=== PATIENT | female | born 1965 | race Caucasian/White ===

== ENCOUNTER → 2016-11-22 | Outpatient (REF) | payer OTHER ==
[~2016-11-22] MED LIST: GABA-279 PO; GABA-283 PO; LISI10TA4 PO; METF500T13 PO; OMEP20CA3 PO; PENT10CA PO; VITA-182 PO
[2016-11-22 19:31] LABS: BACTERIA, URINE NONE SEEN; HYALINE CAST, URINE NONE SEEN /lpf (0-1); MICROSCOPIC EXAM PERFORMED; SQUAMOUS EPITHELIAL CELL URINE SMALL AMOUNT /hpf (SMALL AMT); WBC, URINE 0-1 /hpf (0-3)
== END ==
LOC: M SMT 16:58
PROVIDERS: ATTEND Specialist
DX: R31.0 Gross hematuria (principal)

== ENCOUNTER → 2016-12-02 | Outpatient (CLI) | payer OTHER ==
[2016-12-02 16:59] LABS: ANION GAP 10 MEQ/L (8-16); BLOOD UREA NITROGEN 11 MG/DL (7-18); CALCIUM LEVEL 8.5 MG/DL (8.5-10.1); CARBON DIOXIDE LEVEL 26 MEQ/L (21-32); CHLORIDE LEVEL 104 MEQ/L (98-107); CREATININE FOR GFR 0.54 MG/DL (0.55-1.02); GLOMERULAR FILTRATION RATE > 60.0 (>51); GLUCOSE, FASTING 97 MG/DL (70-105); SODIUM LEVEL 140 MEQ/L (136-145)
== END ==
LOC: M LAB 16:02
PROVIDERS: ATTEND Specialist
DX: R31.0 Gross hematuria (principal)

== ENCOUNTER → 2016-12-03 | Outpatient (CLI) | payer OTHER ==
[~2016-12-03] MED LIST changes: +ISOVUE-370 76% 100ML VIAL (Q9967) As Ordered ONE
--- NOTE | 2016-12-03 11:56 | REP ---
CT of the abdomen pelvis multiphase imaging without and with IV contrast. After IV contrast imaging is performed during the portal venous phase of enhancement and again after a delayed equilibrium phase of enhancement. This is similar to the prior study. There are no renal, ureteral or bladder calculi. This is unchanged. There is no hydronephrosis. This is unchanged. There is no perinephric stranding. There are no renal masses or cysts. This is unchanged. No bladder masses are identified. This is unchanged. The visualized lung finnegan are unremarkable. The hepatic parenchyma, gallbladder, pancreas and spleen are normal size and unchanged. The adrenals, kidneys, abdominal aorta, bowel and mesentery are unchanged. Pelvis: The appendix has a normal appearance. There is a hysterectomy. The vaginal cuff and adnexa are unremarkable. The bladder is unremarkable. There is no ascites. The pelvic bowel loops are unremarkable. Impression: The kidneys, ureters and urinary bladder are unremarkable. There are no calculi, masses, cysts or hydronephrosis . No change from the prior study. Hysterectomy. Otherwise, essentially negative CT of the abdomen and pelvis. Signed by Jeremy Davis MD 12/03/2016 11:47 A
== END ==
LOC: M RAD 11:04
PROVIDERS: ATTEND Specialist
DX: R31.0 Gross hematuria (principal); Z90.710 Acquired absence of both cervix and uterus
CPT/HCPCS: 74178; Q9967

== ENCOUNTER 2017-03-07 06:12 | Day surgery (SDC) | payer OTHER ==
[~2017-03-07] VITALS: Ht 154.9 cm; Wt 98.0 kg
[~2017-03-07 06:12] MED LIST changes: -ISOVUE-370 76% 100ML VIAL (Q9967) As Ordered ONE
[2017-03-07] MEDS ORDERED: LR 1,000 ML IV SCH ×2 (06:30→09:45)
[2017-03-07] MEDS ORDERED: LIDOCAINE 2% INJ 100 MG/5 ML SDV (FOR ANES.) As Ordered ONE (07:55)
[2017-03-07] MEDS ORDERED: PROPOFOL 200 MG/20 ML VIAL As Ordered ONE (07:55)
[2017-03-07] MEDS ORDERED: fentaNYL 100 MCG/2 ML INJECTION (J3010) As Ordered ONE (07:55)
[2017-03-07] MEDS ORDERED: MIDAZOLAM INJ 2 MG/2 ML VIAL (J2250) As Ordered ONE (07:55)
[2017-03-07] MEDS ORDERED: LIDOCAINE 2% 5ML JELLY UROJET As Ordered ONE (08:12)
[2017-03-07] MEDS ORDERED: LIDOCAINE 2% MDV 20 ML VIAL As Ordered ONE (08:14)
[2017-03-07] MEDS ORDERED: PHENYLephrine HCL 500 MCG/5 ML (100MCG/ML) SYRINGE (J2370) As Ordered ONE (08:48)
[2017-03-07] MEDS ORDERED: ONDANSETRON 4MG/2ML VIAL (J2405) As Ordered ONE (08:54)
[2017-03-07] MEDS ORDERED: PERCOCET 5MG/325MG TAB PO PRN (09:45)
[2017-03-07] MEDS ORDERED: fentaNYL 100 MCG/2 ML INJECTION (J3010) IV PRN (09:45)
[2017-03-07] MEDS ORDERED: MEPERIDINE INJ 25 MG/ML VIAL (J2175) IV PRN (09:45)
[2017-03-07] MEDS ORDERED: ONDANSETRON 4MG/2ML VIAL (J2405) IV PRN (09:45)
[2017-03-07] MEDS ORDERED: METOCLOPRAMIDE INJ 10MG/2ML VIAL (J2765) IV PRN (09:45)
[2017-03-07 10:10] VITALS: BP 133/64
--- NOTE | 2017-03-08 11:30 | RO ---
DATE OF PROCEDURE: 03/07/2017 PREOPERATIVE DIAGNOSIS: Severe cystitis. POSTOPERATIVE DIAGNOSIS: Severe cystitis. PROCEDURE: Cystoscopy, random bladder biopsies and extensive fulguration. SURGEON: Nicol Gil MD BUFF WHEEL FABRICATOR: ANESTHESIA: General with laryngeal mask airway (LMA). MEDICATIONS: Ancef 2 grams preoperatively. SPECIMENS: Random bladder biopsies. INDICATIONS FOR PROCEDURE: The patient is a 51-year-old female with a history of gross hematuria and a longstanding history of urinary urgency, urge incontinence, frequency, nocturia, suprapubic pain and pressure and dysuria despite oxybutynin ER daily. Urodynamic studies done 12/12 did show an obstructive voiding pattern with high peak detrusor pressures during voiding. 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 She also had a history of recurrent urinary tract infections versus irritative voiding symptoms. After discussing all different options, alternatives, risks, and benefits it was decided to bring her to the operating room for cystoscopy, bladder biopsies and fulguration. We also started her on Elmiron. Informed consent was obtained in both verbal and written form. A urine culture came back the day of the surgical procedure with Klebsiella in her urine and she was given Ancef 2 grams prior to the procedure, and will be sent home on Bactrim DS daily for 10 days and then started on methenamine to help prevent recurrent infections. PROCEDURE: The patient was brought into the operating room. Sequential compression devices were in place and anesthesia was induced. She was then placed in the lithotomy position and careful attention was paid that her pressure points were well padded and protected. She was prepped and draped in the usual fashion. Next, a #21-Lithuanian cystoscope was inserted. The urethra was noted to be open without any evidence of lesions or strictures. Upon entering the bladder, both ureteral orifices were seen. There was multiple other areas of what appeared to be cystitis follicularis throughout the bladder and there must have been more than 100 lesions. A few bladder biopsies were taken randomly and then using a Bugbee, as many of these that could be fulgurated were. There was some mild areas of glomerulations and hyperemia and these were also fulgurated. At the end of the procedure the patient's bladder was emptied and a red rubber catheter was placed with 10 mL of 2% lidocaine mixed with lidocaine jelly for postoperative pain control. The patient tolerated the procedure well and was returned to the recovery room in stable condition. Again, she will be sent home with Bactrim DS and then started on methenamine. She is to continue her Elmiron at home.
== END 2017-03-07 10:39 | disposition home or self-care (01) ==
LOC: M SDC 06:12
PROVIDERS: ATTEND Specialist
DX: N30.01 Acute cystitis with hematuria (principal); I10 Essential (primary) hypertension; E78.5 Hyperlipidemia, unspecified; E66.9 Obesity, unspecified; E11.9 Type 2 diabetes mellitus without complications; Z79.899 Other long term (current) drug therapy
CPT/HCPCS: 52224; 88305; J0690; J2250; J2370; J2405; J3010

== ENCOUNTER → 2017-03-21 | Outpatient (REF) | payer OTHER | LOC: M SMT 16:55 | PROVIDERS: ATTEND Nurse Practitioner Family | DX: R30.0 Dysuria (principal) ==

== ENCOUNTER → 2017-04-04 | Outpatient (REF) | payer OTHER | LOC: M SMT 13:05 | PROVIDERS: ATTEND Specialist | DX: R30.0 Dysuria (principal) ==

== ENCOUNTER → 2017-04-08 | Outpatient (REF) | payer OTHER ==
[2017-04-08 13:16] LABS: BACTERIA, URINE NONE SEEN; HYALINE CAST, URINE NONE SEEN /lpf (0-1); MICROSCOPIC EXAM PERFORMED; RBC, URINE NONE SEEN /hpf (0-3); SQUAMOUS EPITHELIAL CELL URINE SMALL AMOUNT /hpf (SMALL AMT); WBC, URINE 0-1 /hpf (0-3)
== END ==
LOC: M SMT 12:46
PROVIDERS: ATTEND Specialist
DX: N39.0 Urinary tract infection, site not specified (principal)

== ENCOUNTER → 2017-05-30 | Outpatient (REF) | payer OTHER ==
[2017-05-30 21:21] LABS: WBC, URINE TNTC /hpf (0-3)
[2017-05-30 21:22] LABS: BACTERIA, URINE MOD AMOUNT; MUCUS, URINE SMALL AMOUNT (NEGATIVE)
[2017-05-30 21:23] LABS: SQUAMOUS EPITHELIAL CELL URINE NONE SEEN /hpf (SMALL AMT); TRANSITIONAL EPI CELLS, URINE SMALL AMOUNT /hpf
[2017-05-30 21:26] LABS: HYALINE CAST, URINE NONE SEEN /lpf (0-1); MICROSCOPIC EXAM PERFORMED
== END ==
LOC: M SMT 17:03
DX: R31.0 Gross hematuria (principal)
CPT/HCPCS: 81015

== ENCOUNTER → 2018-01-21 | Outpatient (REF) | payer OTHER | LOC: M LAB REF 17:19 | DX: G60.9 Hereditary and idiopathic neuropathy, unspecified (principal) ==

== ENCOUNTER → 2018-02-26 | Outpatient (REF) | payer OTHER ==
[2018-02-26 19:09] LABS: AMORPHOUS SEDIMENT MODERATE (NEGATIVE); BACTERIA, URINE AUTO 2+ (NEGATIVE); RBC, URINE AUTO 0 /HPF (0-3); SQUAMOUS EPITHELIAL CELL UR AU 0 /HPF (0-6); WBC, URINE AUTO 12 /HPF (0-3)
== END ==
LOC: M SMT 17:04
DX: N39.0 Urinary tract infection, site not specified (principal)

== ENCOUNTER → 2018-06-11 | Outpatient (REF) | payer OTHER ==
[~2018-06-11] MED LIST changes: +GABA-1171 PO; -GABA-279 PO; -GABA-283 PO; +GABA-845 PO
[2018-06-11 13:52] LABS: BACTERIA, URINE AUTO 1+ (NEGATIVE); MUCUS, URINE SMALL (NEGATIVE); RBC, URINE AUTO 1 /HPF (0-3); SQUAMOUS EPITHELIAL CELL UR AU 0 /HPF (0-6); WBC, URINE AUTO 5 /HPF (0-3)
== END ==
LOC: M SMT 13:27
PROVIDERS: ATTEND Specialist
DX: N39.3 Stress incontinence (female) (male) (principal)

== ENCOUNTER → 2018-12-11 | Outpatient (CLI) | payer OTHER ==
[~2018-12-11] MED LIST changes: -OMEP20CA3 PO; +OMEP20CA4 PO
--- NOTE | 2018-12-11 20:09 | REP ---
RIGHT SHOULDER, COMPLETE: 12/11/2018. Comparison MRI shoulder 06/26/2006. Clinical History: Shoulder pain. Findings: Three views are provided. There is some soft tissue calcification just above the superior margin of the glenoid and humeral head and over the greater tuberosity humeral head. This is consistent with calcific tendonitis. The AC joint is not widened. There is no elevation of the clavicle. There may have been some distal clavicular excision since the previous study, but I do not have history. It does have a different configuration than the previous MRI 12 years ago. The glenohumeral joint shows minimal degenerative change inferiorly, scapula, humerus and ribs without fracture. Impression: 1. Calcific tendinopathy over the greater tuberosity humeral head likely in the supraspinatus. 2. Minor degenerative changes glenohumeral joint. Possible distal clavicular excision or resorption of the distal clavicle since the previous study. No acute clavicular finding. Electronically Signed by Jagdish Figueredo MD 12/11/2018 08:28 P
== END ==
LOC: M RAD 17:33
PROVIDERS: ATTEND Internal Medicine
DX: M19.011 Primary osteoarthritis, right shoulder (principal); M25.511 Pain in right shoulder

== ENCOUNTER → 2019-02-24 | Outpatient (CLI) | payer OTHER ==
[~2019-02-24] MED LIST changes: +D 101000 PO; +METH-855 PO; +OXYB15TA PO
[2019-02-24 14:39] LABS: BACTERIA, URINE AUTO NEGATIVE (NEGATIVE); MUCUS, URINE SMALL (NEGATIVE); RBC, URINE AUTO 1 /HPF (0-3); SQUAMOUS EPITHELIAL CELL UR AU 5 /HPF (0-6); WBC, URINE AUTO 17 /HPF (0-3)
--- NOTE | 2019-02-24 22:36 | ECGEPIP ---
[facility] Test Date: 2019-02-24 Pat Name: DANIEL SCHNEIDER Department: Room: - Gender: Female Hvac Service Manager: RED : 1965 Requested By: BRIJESH Campuzano Order Number: [id number] Reading MD: Jose Martin Ferguson Measurements Intervals Mission Rate: 47 P: 39 TN: 194 QRS: 6 QRSD: 84 T: 38 QT: 453 QTc: 404 Interpretive Statements SINUS BRADYCARDIA LOW QRS VOLTAGE IN PRECORDIAL LEADS No prior ECG available for comparison at the time of interpretation. Electronically Signed on 02-24-2019 22:36:13 EDT by Jose Martin Ferguson
== END ==
LOC: M LAB 10:40
PROVIDERS: ATTEND Specialist
DX: R35.1 Nocturia (principal); R94.31 Abnormal electrocardiogram [ECG] [EKG]

== ENCOUNTER → 2019-02-24 | Outpatient (CLI) | payer OTHER ==
[2019-02-24 14:24] LABS: HEMATOCRIT 37.9 % (36.0-47.0); HEMOGLOBIN 11.9 g/dl (12.0-15.5); MEAN CORPUSCULAR HEMOGLOBIN 27.9 pg (27.0-33.0); MEAN CORPUSCULAR HGB CONC 31.4 g/dl (32.0-36.5); PLATELET COUNT, AUTOMATED 243 10^3/uL (150-450); RED BLOOD COUNT 4.26 10^6/uL (4.00-5.40); WHITE BLOOD COUNT 6.5 10^3/uL (4.0-10.0)
[2019-02-24 14:30] LABS: BLOOD UREA NITROGEN 13 MG/DL (7-18); CALCIUM LEVEL 9.3 MG/DL (8.5-10.1); CARBON DIOXIDE LEVEL 29 MEQ/L (21-32); CHLORIDE LEVEL 107 MEQ/L (98-107); CREATININE FOR GFR 0.69 MG/DL (0.55-1.30); GLOMERULAR FILTRATION RATE > 60.0 (>51); GLUCOSE, FASTING 95 MG/DL (70-100); POTASSIUM SERUM 4.3 MEQ/L (3.5-5.1); SODIUM LEVEL 139 MEQ/L (136-145)
== END ==
LOC: M SMT 10:13
PROVIDERS: ATTEND Specialist
DX: R35.1 Nocturia (principal)

== ENCOUNTER 2019-02-26 10:41 | Day surgery (SDC) | payer OTHER ==
[~2019-02-26] VITALS: Ht 157.5 cm; Wt 98.9 kg
[~2019-02-26 10:41] MED LIST changes: +ACETAMINOPHEN 1000MG 100ML IV BTL (OFIRMEV) (J0131 PER 10MG) As Ordered ONE; +LIDOCAINE 2% INJ 100 MG/5 ML SDV (FOR ANES.) As Ordered ONE; +LR 1,000 ML IV ONE; +MIDAZOLAM INJ 2 MG/2 ML VIAL (J2250) As Ordered ONE; +ONDANSETRON 4MG/2ML VIAL (J2405) As Ordered ONE; +PROPOFOL 200 MG/20 ML VIAL As Ordered ONE; +ceFAZolin SOD 2 GM in IV 1 EA IV ONE; +fentaNYL 100 MCG/2 ML INJECTION (J3010) As Ordered ONE
[2019-02-26] MEDS ORDERED: LIDOCAINE 2% 5ML JELLY UROJET As Ordered ONE (10:58)
[2019-02-26] MEDS ORDERED: LIDOCAINE 1% MDV INJ 50 ML VIAL As Ordered ONE (10:58)
[2019-02-26] MEDS ORDERED: dexameTHASONE 4 MG/ML 1ML VIAL (J1100) As Ordered ONE (12:02)
[2019-02-26] MEDS ORDERED: ACETAMINOPHEN 1000MG 100ML IV BTL (OFIRMEV) (J0131 PER 10MG) As Ordered ONE (12:02)
[2019-02-26] MEDS ORDERED: KETOROLAC 60 MG/2 ML VIAL (J1885) As Ordered ONE (12:10)
[2019-02-26] MEDS ORDERED: PROPOFOL 200 MG/20 ML VIAL As Ordered ONE (12:23)
[2019-02-26] MEDS ORDERED: fentaNYL 100 MCG/2 ML INJECTION (J3010) IV PRN (12:45)
[2019-02-26] MEDS ORDERED: METOCLOPRAMIDE INJ 10MG/2ML VIAL (J2765) IV PRN (12:45)
[2019-02-26] MEDS ORDERED: oxyCODONE 5MG TAB PO PRN (12:45)
[2019-02-26] MEDS ORDERED: LR 1,000 ML IV SCH (12:45)
[2019-02-26] MEDS ORDERED: ONDANSETRON 4MG/2ML VIAL (J2405) IV PRN (12:45)
[2019-02-26 14:00] VITALS: BP 110/57
--- NOTE | 2019-02-26 21:24 | RO ---
DATE OF PROCEDURE: 02/26/2019 PREOPERATIVE DIAGNOSIS: Severe cystitis, folliculitis. POSTOPERATIVE DIAGNOSIS: Severe cystitis, folliculitis. PROCEDURE: Cystoscopy, hydrodistention, bladder biopsies, and extensive fulguration. SURGEON: Dr. Nicol Gil GOSPEL SINGER: ANESTHESIA: Monitored anesthesia care (MAC). MEDICATIONS: Ancef preoperatively. SPECIMENS: Bladder biopsies. 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 Since then she has been managed by Elmiron and methenamine, and also oxybutynin ER. Recently, though, she has been quite bothered by urinary urgency and urge incontinence again and bladder pain and pressure with burning. It was decided to bring her back to the operating room for another procedure. Informed consent was obtained in both verbal and written form. DESCRIPTION OF PROCEDURE: The patient was brought into the operating room and sequential compression devices and thromboembolism deterrent (LIDA) stockings were in place. IV sedation was given and she was placed in the lithotomy position. Careful attention was paid that her pressure points were well padded and protected. She was prepped and draped in the usual fashion. Next, a 21-Slovak cystoscope was inserted and upon entering the bladder, both ureteral orifices were seen. Again, there were severe changes of follicular cystitis throughout the entire bladder lining, except for the areas that were fulgurated in the past, some of these were spared. At this point, the patient's bladder was distended using normal saline for a total of 10 minutes, and her total bladder capacity under anesthesia was approximately 600 mL. Afterwards some bladder biopsies were done and then extensive fulguration was done on the lesions throughout the bladder. A slurry of lidocaine jelly and 1% lidocaine was then placed in the bladder for postprocedure pain control. The patient tolerated the procedure well and was returned to the recovery room in stable condition. TEX
== END 2019-02-26 14:15 | disposition home or self-care (01) ==
LOC: M SDC 10:41
PROVIDERS: ATTEND Specialist
DX: N30.30 Trigonitis without hematuria (principal); R35.1 Nocturia; R10.2 Pelvic and perineal pain; R39.15 Urgency of urination; R32 Unspecified urinary incontinence; I10 Essential (primary) hypertension; E11.9 Type 2 diabetes mellitus without complications; K21.9 Gastro-esophageal reflux disease without esophagitis; F41.9 Anxiety disorder, unspecified; Z79.899 Other long term (current) drug therapy
CPT/HCPCS: 52234; 52260; 88305; J0131; J0690; J1100; J1885; J2250; J2405; J3010

== ENCOUNTER → 2019-05-18 | Outpatient (REF) | payer OTHER ==
[~2019-05-18] MED LIST changes: -ACETAMINOPHEN 1000MG 100ML IV BTL (OFIRMEV) (J0131 PER 10MG) As Ordered ONE; -LIDOCAINE 2% INJ 100 MG/5 ML SDV (FOR ANES.) As Ordered ONE; -LR 1,000 ML IV ONE; -MIDAZOLAM INJ 2 MG/2 ML VIAL (J2250) As Ordered ONE; +OMEP1CAP73 PO; -OMEP20CA4 PO; -ONDANSETRON 4MG/2ML VIAL (J2405) As Ordered ONE; -OXYB15TA PO; +OXYB15TA14 PO; -PROPOFOL 200 MG/20 ML VIAL As Ordered ONE; -ceFAZolin SOD 2 GM in IV 1 EA IV ONE; -fentaNYL 100 MCG/2 ML INJECTION (J3010) As Ordered ONE
[2019-05-18 18:41] LABS: BACTERIA, URINE AUTO NEGATIVE (NEGATIVE); RBC, URINE AUTO 3 /HPF (0-3); SQUAMOUS EPITHELIAL CELL UR AU 1 /HPF (0-6); WBC, URINE AUTO 76 /HPF (0-3)
== END ==
LOC: M SMT 17:14
PROVIDERS: ATTEND Specialist
DX: N30.90 Cystitis, unspecified without hematuria (principal); R32 Unspecified urinary incontinence

== ENCOUNTER 2019-07-10 16:17 | Emergency (ER) | payer OTHER ==
[~2019-07-10] VITALS: Ht 157.5 cm; Wt 101.3 kg
[2019-07-10] MEDS ORDERED: RALT40TA PO ×2 (17:10→17:51)
[2019-07-10] MEDS ORDERED: LEXA5TAB13 PO (17:10)
[2019-07-10] MEDS ORDERED: MYRB50TA PO (17:10)
[2019-07-10] MEDS ORDERED: TRUVTAB PO ×2 (17:10→17:51)
[2019-07-10 17:36] LABS: BASO % 0.7 % (0.0-1.0); EOS # 0.1 10^3/uL (0.0-0.5); EOS % 1.8 % (0.0-3.0); HEMATOCRIT 37.9 % (36.0-47.0); HEMOGLOBIN 11.9 g/dl (12.0-15.5); LYMPH # 2.3 10^3/uL (1.5-5.0); LYMPH % 38.2 % (24.0-44.0); MEAN CORPUSCULAR HEMOGLOBIN 27.3 pg (27.0-33.0); MEAN CORPUSCULAR HGB CONC 31.4 g/dl (32.0-36.5); MEAN CORPUSCULAR VOLUME 86.9 fl (80.0-96.0); MONO # 0.4 10^3/uL (0.0-0.8); MONO % 6.4 % (0.0-5.0); NEUTROPHILS # 3.2 10^3/uL (1.5-8.5); NEUTROPHILS % 52.7 % (36.0-66.0); PLATELET COUNT, AUTOMATED 240 10^3/uL (150-450); RED BLOOD COUNT 4.36 10^6/uL (4.00-5.40); WHITE BLOOD COUNT 6.1 10^3/uL (4.0-10.0)
[2019-07-10] MEDS ORDERED: HEPATITIS B IMMUNE GLOBULIN 5ML INJ (J1571) IM ONE (17:45)
[2019-07-10] MEDS ORDERED: EXPOSURE KIT-ADULT 7 DAY SUPPLY PO ONE (17:45)
[2019-07-10] MEDS ORDERED: ADACEL/BOOSTRIX VACCINE (DIPHTH/PERTUSS/ACELL/TETANUS)0.5ML SYR (90715) IM ONE (17:45)
[2019-07-10] MEDS ORDERED: [UNRECOGNIZED DRUG - OTHER] IM ONE (17:45)
[2019-07-10] MEDS ORDERED: KEFL500C17 PO (17:52)
[2019-07-10 18:08] LABS: ALBUMIN 3.8 GM/DL (3.2-5.2); ALT/SGPT 32 U/L (12-78); BILIRUBIN,TOTAL 0.2 MG/DL (0.2-1.0); BLOOD UREA NITROGEN 12 MG/DL (7-18); CALCIUM LEVEL 8.9 MG/DL (8.5-10.1); CARBON DIOXIDE LEVEL 29 MEQ/L (21-32); CHLORIDE LEVEL 105 MEQ/L (98-107); CREATININE FOR GFR 0.68 MG/DL (0.55-1.30); GLOMERULAR FILTRATION RATE > 60.0 (>51); GLUCOSE, FASTING 120 MG/DL (70-100); SODIUM LEVEL 139 MEQ/L (136-145)
[2019-07-10] MEDS ORDERED: RALTEGRAVIR 400 MG TAB (ISENTRESS) PO ONE (18:30)
[2019-07-10] MEDS ORDERED: TRUVADA 200MG/300MG TABLET PO ONE (18:30)
[2019-07-10 19:07] VITALS: BP 151/66
[2019-07-11] MEDS ORDERED: RALTEGRAVIR 400 MG TAB (ISENTRESS) PO SCH
[2019-07-11] MEDS ORDERED: TRUVADA 200MG/300MG TABLET PO SCH
[2019-07-12 09:40] LABS: HEPATITIS B SURFACE ANTIBODY NEGATIVE (POSITIVE)
[2019-07-12 09:50] LABS: HEPATITIS B SURFACE ANTIGEN NEGATIVE (NEGATIVE)
[2019-07-12 10:19] LABS: HEPATITIS C VIRUS ABY INDEX < 0.0 INDEX (<0.8)
[2019-07-12 10:20] LABS: HIV 1&2 SCREEN CENTAUR NEGATIVE (NEGATIVE)
== END 2019-07-10 19:09 | disposition home or self-care (01) ==
LOC: M ED 16:17
DX: Z77.21 Contact with and (suspected) exposure to potentially hazardous body fluids (principal); W46.1XXA Contact with contaminated hypodermic needle, initial encounter; I10 Essential (primary) hypertension; K21.9 Gastro-esophageal reflux disease without esophagitis; Z79.84 Long term (current) use of oral hypoglycemic drugs; Z79.899 Other long term (current) drug therapy
CPT/HCPCS: 36415; 80053; 85025; 86706; 86803; 87340; 87389; 90471; 90715; 90746; 99284; J1571

== ENCOUNTER → 2019-11-29 | Outpatient (REF) | payer OTHER ==
[~2019-11-29] MED LIST changes: +KEFL500C17 PO; +LEXA5TAB13 PO; +MYRB50TA PO; +RALT40TA PO; +TRUVTAB PO
[2020-01-19 10:45] LABS: ANTINUCLEAR ANTIBODIES DIRECT See Separate Report; CYCLIC CITRULLINATED PEPTIDE See Separate Report UNITS
== END ==
LOC: M LAB REF 10:04
PROVIDERS: ATTEND Internal Medicine
DX: M25.541 Pain in joints of right hand (principal); M25.542 Pain in joints of left hand

== ENCOUNTER → 2020-05-24 | Outpatient (CLI) | payer OTHER ==
[~2020-05-24] MED LIST changes: +LEXA5TAB13; +LISI10TA22 PO; -LISI10TA4 PO; +METF-839 PO; +NOXI1TAB PO; +PANT40TA29; +PHEN1TAB73 PO
== END ==
LOC: M LABSMTC 11:40
PROVIDERS: ATTEND Anesthesiology
DX: Z01.812 Encounter for preprocedural laboratory examination (principal); Z20.822 Contact with and (suspected) exposure to COVID-19

== ENCOUNTER 2020-05-29 10:16 | Day surgery (SDC) | payer OTHER ==
[~2020-05-29] VITALS: Ht 154.9 cm; Wt 99.1 kg
[~2020-05-29 10:16] MED LIST changes: -LISI10TA22 PO; +LISI10TA4 PO; -NOXI1TAB PO; +NS 1,000 ML IV ONE; -PHEN1TAB73 PO
--- OUTSIDE RECORDS SUMMARY | 2020-05-29 10:36 | CCD ---
Author Author [facility] em[facility] Organization [facility] ems Address Unknown Phone Unavailable Care Team Providers Care Long Filler Cigar Roller Machine Name Role Phone JefferyNicol Unavailable PROBLEMS Type Condition ICD9-CM Code [id number] Code Onset Dates Condition S tatus SNOMED Code Notes Problem Other and unspecified hyperlipidemia 272.4 Act sravanthi 22454489 Problem Diabetes mellitus without me ntion of complication, type II or unspecified type, not stated as uncontrolled 250.00 Ac tive 909588938 Problem Hematuria 599.70 Active 79049607 Problem Neck muscle strain 847.0 Active 090371431 Problem Unspecified essential hypertension 401.9 Activ e 87997253 Problem Urinary incontinence, unspecified type R32 A ctive 004722810 Problem UTI (lower urinary tract infection) 599.0 Acti ve 26167923 Problem Mixed hyperlipidemia 272.2 Active 277687761 Problem Pain in joint, site unspecified 719.40 Active 70574227 Problem Strain of ligament or muscle 848.9 Active 105 022836 ALLERGIES Allergen (clinical drug ingredient) Drug/Non Drug Allergy do cumented on EMR Reaction Allergy Type Onset Date Status BACTRIM GI UPSET Non Drug Allergy Active ENCOUNTERS from 1965 to 2020-04-17 Encounter Location Date Provider Diagnosis [facility] [address] [place] [address] Mar Nicol Gil Cystitis N30.90 ; Nocturia R35.1 ; Supra pubic pain R10.2 ; Urgency of micturition R39.15 ; Urinary incontinence, unspecified type R32 and Follicular cystitis 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 No Have you ever had an STD? No Tobacco Use: Question Answer Notes Are you a: quit 13 years ago REASON FOR REFERRAL No Information VITAL SIGNS Weight 218 lbs Mar, Height 62 in Mar, BMI 39.87 kg/m2 Mar, Heart Rate 66 /min Mar, Respiratory Rate 18 /min Mar, Temperature 96.1 degrees Fahrenheit Mar, Oximetry 99 Mar, Blood pressure systolic 130 mm Hg Mar, Blood pressure diastolic 74 mm Hg Mar, MEDICATIONS Medication SIG (Take, Route, Frequency, Duration) Notes Start Da te End Date Status Oxybutynin Chloride ER 10MG 1 tablet Orally Once a day Not-Taking Omeprazole 20 mg 1 capsule Orally Once a day August, Not-Taking Pyridium 100 MG 1 tablets after meals Orally Three times a day PRN for 30 days Mar, Active Bactrim DS 800-160 MG 1 tablet Orally bid for 10 day(s) Feb, Not-Taking Macrobid 100MG TAKE 1 CAPSULE BY MOUTH EVER Y 12 HOURS WITH FOOD TO SELF START AFTER DROPPING OFF URINE SPECIMEN Not-Taking Macrobid 100 MG 1 capsule with food Orally take one tablet BID f or 7 day(s) Apr, Not-Taking Macrobid 100 MG 1 capsule with food Orally take one tablet BID for 7 day(s) Not-Taking Myrbetriq 50 MG 1 tablet Orally Once a day for 90 day(s) 2 Apr, Active Lisinopril 10 10 mg 2.5MG oral once a day Active Macrobid 100 MG 1 capsule at bedtime with food Orally bid for 7 day(s) Feb, Not-Taking Cipro 500 MG 1 tablet Orally every 12 hrs for 3 days 2018 Not-Taking Macrobid 100MG TAKE 1 CAPSULE BY MOUTH EVER Y 12 HOURS WITH FOOD TO SELF START AFTER DROPPING OFF URINE SPECIMEN Not-Taking Escitalopram Oxalate 5 MG Orally Daily Active Pyridium 100 MG 1 tablet after meals Orally Three times a day fo r 2 day(s) Nov, Not-Taking BusPIRone HCl 10 MG 1 tablet Orally Twice a day Not-Taking Elmiron 100 MG 1 capsule on an empty stomac h Orally Three times a day for 90 days Active Methenamine Hippurate 1 GM 1 tablet Orally Twice a day . Pt to start taking this when Bactrim is completed. for 90 days Active Gabapentin 100 MG Orally Active Cipro 500 MG 1 tablet Orally Twice a day for 10 day(s) May, Not-Taking Lidocaine HCl Jelly RESIDENTIAL 2 % 1 application to affected area as needed Intravesically prior to procedure for 1 days Not-Taking Metformin HCl 500 mg 1 tablet with meals Orally bid Active Pravachol 20 mg 1 tablet Orally Once a day for 30 day(s) 1 Nov, Not-Taking Vitamin D3 1000 UNIT 1 capsule Orally Once a day Active PROCEDURES No Information RESULTS No Results REASON FOR VISIT fu MEDICAL (GENERAL) HISTORY Type Description Date Medical History diabetes mellitus Medical History high blood pressure Medical History high cholesterol Medical History rheumatoid arthritis Medical History GERD Medical History CYSTITIS FOLICULARIS Surgical History hysterectomy 2000 Surgical History ankle surgery 2001 Surgical History CYSTOSCOPY/BLADDER BX/FULGARATION Hospitalization History No Hospitalization history informati on Goals Section No Information Health Concerns No Information MEDICAL EQUIPMENT No Information MENTAL STATUS No Information FUNCTIONAL STATUS No Information ASSESSMENTS Encounter Date Diagnosis Assessment Notes Treatment Notes Treatm ent Clinical Notes Mar, Cystitis (ICD-10 - N30.90) Plan -Continue Elmiron and Myrbetriq 50 mg -Utilize Pyridium when necessary -Avoidance of bladder irritants again discussed and healthy bladder habits -Follow-up in 6 months This was dictated with Bryan and not proofread for errors Mar, Nocturia (ICD-10 - R35.1) Mar, Suprapubic pain (ICD-10 - R10.2) Mar, Urgency of micturition (ICD-10 - R39.15) Mar, Urinary incontinence, unspecified type (ICD-10 - R32) Mar, Follicular cystitis (ICD-10 - N30.30) PLAN OF TREATMENT Medication Medication Name Sig Start Date Stop Date Pyridium 100 MG 1 tablets after meals Orally Three times a day PRN for 30 days Mar, Treatment Notes Assessment Notes Clinical Notes Cystitis Plan-Continue Elmiro n and Myrbetriq 50 mg-Utilize Pyridium when necessary-Avoidance of bladder irritants again discussed and healthy bladder [id number] in 6 monthsThis was dictated with Bryan and not proofread for errors Next Appt Details 6 Months Reason: Insurance Providers Payer Name Payer Address Payer Phone Insured Name Patient Relati onship to Insured Coverage Start Date Coverage End Date [facility] [id number] [facility] [id number] Edwardo Bello
--- OUTSIDE RECORDS SUMMARY | 2020-05-29 10:36 | CCD ---
Author Author [facility] Organization [facility] Address Unknown Phone Unavailable Care Team Providers Care Director Of Planning Name Role Phone Jeffery Nicol Unavailable PROBLEMS Type Condition ICD9-CM Code [id number] Code Onset Dates Condition S tatus SNOMED Code Notes Problem Other and unspecified hyperlipidemia 272.4 Act sravanthi 52246406 Problem Diabetes mellitus without me ntion of complication, type II or unspecified type, not stated as uncontrolled 250.00 Ac tive 835941745 Problem Hematuria 599.70 Active 59910461 Problem Neck muscle strain 847.0 Active 224871411 Problem Unspecified essential hypertension 401.9 Activ e 23740261 Problem Urinary incontinence, unspecified type R32 A ctive 914353397 Problem UTI (lower urinary tract infection) 599.0 Acti ve 01999857 Problem Mixed hyperlipidemia 272.2 Active 335081059 Problem Pain in joint, site unspecified 719.40 Active 57622811 Problem Strain of ligament or muscle 848.9 Active 105 797460 ALLERGIES Allergen (clinical drug ingredient) Drug/Non Drug Allergy do cumented on EMR Reaction Allergy Type Onset Date Status BACTRIM GI UPSET Non Drug Allergy Active ENCOUNTERS from 1965 to 2020-05-27 Encounter Location Date Provider Diagnosis [facility] U[facility] [address] [place] [address] Apr Nicol Gil IMMUNIZATIONS No Information SOCIAL HISTORY Tobacco Use: [...] REASON FOR REFERRAL No Information VITAL SIGNS No information MEDICATIONS Medication SIG (Take, Route, Frequency, Duration) Notes Start Da te End Date Status Omeprazole 20 mg 1 capsule Orally Once a day August, Not-Taking Pyridium 100 MG 1 tablets after meals Orally Three times a day PRN for 30 days Mar, Active Vitamin D3 1000 UNIT 1 capsule Orally Once a day Active Lidocaine HCl Jelly [facility] 2 % 1 application to affected area as needed Intravesically prior to procedure for 1 days Not-Taking Elmiron 100 MG 1 capsule on an empty stomac h Orally Three times a day for 90 days Active Methenamine Hippurate 1 GM 1 tablet Orally Twice a day . Pt to start taking this when Bactrim is completed. for 90 days Active Oxybutynin Chloride ER 10MG 1 tablet Orally Once a day Not-Taking Macrobid 100 MG 1 capsule at bedtime with food Orally bid for 7 day(s) Feb, Not-Taking Macrobid 100 MG 1 capsule with food Orally take one tablet BID f or 7 day(s) Apr, Not-Taking Oxybutynin Chloride ER 15 MG 1 tablet Orally Once a day for 90 d ay(s) Apr, Active Lisinopril 10 10 mg 2.5MG oral once a day Active Cipro 500 MG 1 tablet Orally every 12 hrs for 3 days 2018 Not-Taking Escitalopram Oxalate 5 MG Orally Daily Active Macrobid 100MG TAKE 1 CAPSULE BY MOUTH EVER Y 12 HOURS WITH FOOD TO SELF START AFTER DROPPING OFF URINE SPECIMEN Not-Taking Macrobid 100 MG 1 capsule with food Orally take one tablet BID for 7 day(s) Not-Taking Gabapentin 100 MG Orally Active Myrbetriq 50 MG 1 tablet Orally Once a day for 90 day(s) 2 Apr, Active Pravachol 20 mg 1 tablet Orally Once a day for 30 day(s) 1 Nov, Not-Taking Macrobid 100MG TAKE 1 CAPSULE BY MOUTH EVER Y 12 HOURS WITH FOOD TO SELF START AFTER DROPPING OFF URINE SPECIMEN Not-Taking Bactrim DS 800-160 MG 1 tablet Orally bid for 10 day(s) Feb, Not-Taking Cipro 500 MG 1 tablet Orally Twice a day for 10 day(s) May, Not-Taking Metformin HCl 500 mg 1 tablet with meals Orally bid Active Pyridium 100 MG 1 tablet after meals Orally Three times a day fo r 2 day(s) Nov, Not-Taking BusPIRone HCl 10 MG 1 tablet Orally Twice a day Not-Taking PROCEDURES No Information RESULTS No Results REASON FOR VISIT re-fill MEDICAL (GENERAL) HISTORY Type Description Date Medical [...] No Information FUNCTIONAL STATUS No Information ASSESSMENTS No Information PLAN OF TREATMENT Medication Medication Name Sig Start Date Stop Date Elmiron 100 MG 1 capsule on an empty stomac h Orally Three times a day for 90 days Oxybutynin Chloride ER 15 MG 1 tablet Orally Once a day for 90 day(s) Apr, Pyridium 100 MG 1 tablets after meals Orally Three times a day PRN for 30 days Mar, Myrbetriq 50 MG 1 tablet Orally Once a day for 90 day(s) Apr, Insurance Providers Payer Name Payer Address Payer Phone Insured Name Patient Relati onship to Insured Coverage Start Date Coverage End Date [facility] [id number] [facility] [phone] Edwardo Bello
--- OUTSIDE RECORDS SUMMARY | 2020-05-29 10:36 | CCD ---
Author Author [facility] Organization [facility] em[facility] Address Unknown Phone Unavailable Care Team Providers Care Block Greaser Name Role Phone JefferyNicol Unavailable PROBLEMS Type Condition ICD9-CM Code [id number] Code Onset Dates Condition S tatus SNOMED Code Notes Problem Other and unspecified hyperlipidemia 272.4 Act sravanthi 17047553 Problem Diabetes mellitus without me ntion of complication, type II or unspecified type, not stated as uncontrolled 250.00 Ac tive 731135185 Problem Hematuria 599.70 Active 79482170 Problem Neck muscle strain 847.0 Active 822573375 Problem Unspecified essential hypertension 401.9 Activ e 55575336 Problem Urinary incontinence, unspecified type R32 A ctive 734859225 Problem UTI (lower urinary tract infection) 599.0 Acti ve 15497453 Problem Mixed hyperlipidemia 272.2 Active 613029871 Problem Pain in joint, site unspecified 719.40 Active 31673209 Problem Strain of ligament or muscle 848.9 Active 105 872593 ALLERGIES Allergen (clinical drug ingredient) Drug/Non Drug Allergy do cumented on EMR Reaction Allergy Type Onset Date Status BACTRIM GI UPSET Non Drug Allergy Active ENCOUNTERS from 1965 to 2020-04-25 Encounter Location Date Provider Diagnosis [facility] Urology [address] [place] [address] Mar Nicol Gil Nocturia R35.1 IMMUNIZATIONS No Information SOCIAL HISTORY Tobacco Use: [...] day PRN for 30 days Mar, Active Macrobid 100 MG 1 capsule with food Orally take one tablet BID f or 7 day(s) Apr, Not-Taking Macrobid 100MG TAKE 1 CAPSULE BY MOUTH EVER Y 12 HOURS WITH FOOD TO SELF START AFTER DROPPING OFF URINE SPECIMEN Not-Taking Elmiron 100 MG 1 capsule on an empty stomac h Orally Three times a day for 90 days Active Macrobid 100 MG 1 capsule with food Orally take one tablet BID for 7 day(s) Not-Taking Bactrim DS 800-160 MG 1 tablet Orally bid for 10 day(s) Feb, Not-Taking Lisinopril 10 10 mg 2.5MG oral once [...] 1 tablet Orally Twice a day Not-Taking Cipro 500 MG 1 tablet Orally Twice a day for 10 day(s) May, Not-Taking Methenamine Hippurate 1 GM 1 tablet Orally Twice a day . Pt to start taking this when Bactrim is completed. for 90 days Active Gabapentin 100 MG Orally Active Myrbetriq 50 MG 1 tablet Orally Once a day for 90 day(s) 2 Apr, Active Lidocaine HCl Jelly INTERMEDIATE 2 % 1 application to affected area as needed Intravesically prior to procedure for 1 days Not-Taking Metformin HCl 500 mg 1 tablet with meals Orally bid Active Pravachol 20 mg 1 tablet Orally Once a day for 30 day(s) 1 5 Nov, 2012 Not-Taking Vitamin D3 1000 UNIT 1 capsule Orally Once a day Active PROCEDURES No Information RESULTS No Results REASON FOR VISIT re-fills MEDICAL (GENERAL) HISTORY Type Description Date Medical [...] Treatment Notes Treatm ent Clinical Notes Mar, Nocturia (ICD-10 - R35.1) PLAN OF TREATMENT Medication Medication Name Sig Start Date Stop Date Myrbetriq 50 MG 1 tablet Orally Once a day for 90 day(s) Apr, Elmiron 100 MG 1 capsule on an empty stomac h Orally Three times a day for 90 days Pyridium 100 MG 1 tablets after meals Orally Three times a day PRN for 30 days Mar, Insurance Providers Payer Name Payer Address Payer Phone Insured Name Patient Relati onship to Insured Coverage Start Date Coverage End Date [facility] [id number] [facility] [id number] [phone] ReffEdwardo
--- OUTSIDE RECORDS SUMMARY | 2020-05-29 10:37 | CCD ---
Author Author [facility] Organization [facility] Address Unknown Phone Unavailable Care Team Providers Care Cook Pickled Meat Name Role Phone Sofia, Suha DO Unavailable Unavailable Sofia, Suha DO Unavailable Unavailable Sofia, Suha DO Unavailable Unavailable Sofia, Suha DO Unavailable Unavailable Sofia, Suha DO Unavailable Unavailable Sofia, Suha DO Unavailable Unavailable Sofia, Suha DO Unavailable Unavailable Sofia, Suha DO Unavailable Unavailable Sofia, Suha DO Unavailable Unavailable Sofia, Suha DO Unavailable Unavailable Sofia, Suha DO Unavailable Unavailable Sofia, Suha DO Unavailable Unavailable Sofia, Suha DO Unavailable Unavailable Sofia, Suha DO Unavailable Unavailable Sofia, Suha DO Unavailable Unavailable Sofia, Suha DO Unavailable Unavailable Sofia, Suha DO Unavailable Unavailable Sofia, Suha DO Unavailable Unavailable Sofia, Suha DO Unavailable Unavailable Sofia, Suha DO Unavailable Unavailable Sofia, Suha DO Unavailable Unavailable Sofia, Suha DO Unavailable Unavailable Sofia, Suha DO Unavailable Unavailable Sofia, Suha DO Unavailable Unavailable Sofia, Suha DO Unavailable Unavailable Sofia, Suha DO Unavailable Unavailable Sofia, Suha DO Unavailable Unavailable Sofia, Suha DO Unavailable Unavailable Sofia, Suha DO Unavailable Unavailable Sofia, Usha DO Unavailable Unavailable Sofia, Shua DO Unavailable Unavailable Osfia, Suha DO Unavailable Unavailable Sofia, Suha DO Unavailable Unavailable Sofia, Suha DO Unavailable Unavailable Sofia, Suha DO Unavailable Unavailable Sofia, Suha DO Unavailable Unavailable Sofia, Suha DO Unavailable Unavailable Sofia, Suha DO Unavailable Unavailable Sofia, Suha DO Unavailable Unavailable Sofia, Suha DO Unavailable Unavailable Sofia, Suha DO Unavailable Unavailable Sofia, Suha DO Unavailable Unavailable Sofia, Suha DO Unavailable Unavailable Sofia, Suha DO Unavailable Unavailable Sofia, Suha DO Unavailable Unavailable Sofia, Suha DO Unavailable Unavailable Sofia, Suha DO Unavailable Unavailable Sofia, Suha DO Unavailable Unavailable Sofia, Suha DO Unavailable Unavailable Sofia, Suha DO Unavailable Unavailable Sofia, Suha DO Unavailable Unavailable Sofia, Suha DO Unavailable Unavailable Sofia, Suha DO Unavailable Unavailable Sofia, Suha DO Unavailable Unavailable Sofia, Suha DO Unavailable Unavailable Sofia, Suha DO Unavailable Unavailable Sofia, Suha DO Unavailable Unavailable Sofia, Suha DO Unavailable Unavailable Sofia, Suha DO Unavailable Unavailable Sofia, Suha DO Unavailable Unavailable Sofia, Suha DO Unavailable Unavailable Sofia, Suha DO Unavailable Unavailable Sofia, Suha DO Unavailable Unavailable Sofia, Suha DO Unavailable Unavailable Sofia, Suha DO Unavailable Unavailable Sofia, Suha DO Unavailable Unavailable Sofia, Suha DO Unavailable Unavailable Sofia, Suha DO Unavailable Unavailable Sofia, Suha DO Unavailable Unavailable Sofia, Suha DO Unavailable Unavailable Sofia, Suha DO Unavailable Unavailable Sofia, Suha DO Unavailable Unavailable [facility], JLAM Unavailable Unavailable BECKIE, GERMÁN VIRGINIA PA Unavailable Unavailable BECKIE, GERMÁN VIRGINIA PA Unavailable Unavailable BECKIE, GERMÁN VIRGINIA PA Unavailable Unavailable BECKIE, GERMÁN VIRGINIA PA Unavailable Unavailable BECKIE, GERMÁN VIRGINIA PA Unavailable Unavailable BECKIE, GERMÁN VIRGINIA PA Unavailable Unavailable BECKIE, GERMÁN VIRGINIA PA Unavailable Unavailable BECKIE, GERMÁN VIRGINIA PA Unavailable Unavailable BECKIE, GERMÁN VIRGINIA PA Unavailable Unavailable BECKIE, GERMÁN VIRGINIA PA Unavailable Unavailable BECKIE, GERMÁN VIRGINIA PA Unavailable Unavailable BECKIE, GERMÁN VIRGINIA PA Unavailable Unavailable BECKIE, GERMÁN VIRGINIA PA Unavailable Unavailable BECKIE, GREMÁN ANTUNEZIC PA Unavailable Unavailable BECKIE, GERMÁN ANTUNEZIC PA Unavailable Unavailable BECKIE, GERMÁN ANTUNEZIC PA Unavailable Unavailable BECKIE, GERMÁN ANTUNEZIC PA Unavailable Unavailable BECKIE, GERMÁN ANTUNEZIC PA Unavailable Unavailable BECKIE, GERMÁN ANTUNEZIC PA Unavailable Unavailable BECKIE, GERMÁN ANTUNEZIC PA Unavailable Unavailable BECKIE, GERMÁN ANTUNEZIC PA Unavailable Unavailable Re-disclosure Warning The records that you are about to access may contain information from federally-assisted alcohol or drug abuse programs. If such information is present, then the following federally mandated warning applies: This information has been disclosed to you from records protected by federal confidentiality rules (42 CFR part 2). The federal rules prohibit you from making any further disclosure of this information unless further disclosure is expressly permitted by the written consent of the person to whom it pertains or as otherwise permitted by 42 CFR part 2. A general authorization for the release of medical or other information is NOT sufficient for this purpose. The Federal rules restrict any use of the information to criminally investigate or prosecute any alcohol or drug abuse patient.The records that you are about to access may contain highly sensitive health information, the redisclosure of which is protected by Article 27-F of the [facility] Public Health law. If you continue you may have access to information: Regarding HIV / AIDS; Provided by facilities licensed or operated by the [facility] Office of Mental Health; or Provided by the [facility] Office for People With Developmental Disabilities. If such information is present, then the following [facility] mandated warning applies: This information has been disclosed to you from confidential records which are protected by state law. State law prohibits you from making any further disclosure of this information without the specific written consent of the person to whom it pertains, or as otherwise permitted by law. Any unauthorized further disclosure in violation of state law may result in a fine or nursing home sentence or both. A general authorization for the release of medical or other information is NOT sufficient authorization for further disc losure. Family History Family Member Name Family Member Gender Family Member Status Date o f Status Description Data Source(s) Unknown Unknown Problem MEDENT ([facility]) father Unknown Female Problem [facility] ([facility]) Encounters Encounter Providers Location Date Indications Data Source(s ) [place] [address] [place] [address] 05/26/2020 12:00:00 AM EST eCW1 ([facility]) [place] [address] [address] 04/24/2020 12:00:00 AM EST eCW1 ([facility]) Out[place] [address] [facility] [place] [address] 04/06/2020 12:00:00 AM EST eCW1 ([facility]) Outpatient Attender: Suha Black DOReferrer: Suha Black DO 01/25/2020 01:00:00 PM EDT - 01/25/2020 01:00:00 PM EDT [facility] Outpatient Attender: Suha Stewart 12/14 11:40:00 AM EDT MEDENT ([facility] ) Outpatient Attender: Suha Stewart 11/28 10:40:00 AM EDT MEDENT ([facility] ) Emergency Attender: VIRGINIA BUTTS PAReferrer: Suha connelly DO 11/22/2019 09:54:00 PM EDT - 11/22/2019 10:15:00 PM EDT [facility] Patient discharged. Outpatient Attender: [facility] 10/05/2019 07:59:27 PM EDT [facility] [address] [place] [phone] 09/13/2019 12:00:00 AM EDT eCW1 ([facility]) Outpatient Attender: [facility] 07/09/2019 02:18:00 PM EDT [facility] [address] [place] [phone] 05/21/2019 12:00:00 AM EST eCW1 ([facility]) [facility] [address] [place] [phone] 05/18/2019 12:00:00 AM EST eCW1 ([facility]) [facility] [address] [place] [phone] 05/03/2019 12:00:00 AM EST eCW1 ([facility]) [facility] [address] [place] [phone] 04/20/2019 12:00:00 AM EST eCW1 ([facility]) Medications Medication Brand Name Start Date Product Form Dose Route Admi nistrative Instructions Pharmacy Instructions Status Indications Reaction Description Data Source(s) 24 HR Oxybutynin chloride 15 MG Extended Release Oral Tablet Oxybutynin Chloride ER 15 MG Oxybutynin Chloride ER 15 MG 05/26/2020 12:00:00 AM EST 1.0 {tablet} active Oxybutynin Chloride ER 15 MG eCW1 ([facility]) Phenazopyridine hydrochloride 100 MG Oral Tablet [Pyri dium] Pyridium 100 MG Pyridium 100 MG 04/06/2020 12:00:00 AM EST 1.0 {tablets_after_meals} active Pyridium 100 MG eCW1 ([facility]) Phenazopyridine hydrochloride 100 MG Oral Tablet [Pyri dium] Pyridium 100 MG Pyridium 100 MG 04/06/2020 12:00:00 AM EST 1.0 {tablets_after_meals} active Pyridium 100 MG eCW1 ([facility]) Phenazopyridine hydrochloride 100 MG Oral Tablet [Pyri dium] Pyridium 100 MG Pyridium 100 MG 04/06/2020 12:00:00 AM EST 1.0 {tablets_after_meals} active Pyridium 100 MG eCW1 ([facility]) pantoprazole 40 MG Delayed Release Oral Tablet Pantoprazole Sodium 12/15/2019 12:00:00 AM EDT ORAL active M EDENT ([facility]) Naproxen 500 MG Oral Tablet Naproxen 11/29/2019 12:00:00 AM EDT ORAL completed MEDENT ([facility]) 800 mg 11/24/2019 12:00:00 AM EDT tablet 15 TAKE ONE TABLET BY MOUTH EVERY 8 HOURS NEEDED FOR PAIN TAKE ONE TABLET BY MOUTH EVERY 8 HOURS A S NEEDED FOR PAIN SOLD: 11/24/2019 [facility] Fexofenadine hydrochloride 180 MG Oral Tablet Fexofenadine H CL 05/31/2019 12:00:00 AM EST ORAL active M EDENT ([facility]) NITROFURANTOIN, MACROCRYSTALS 25 MG / Ni trofurantoin, Monohydrate 75 MG Oral Capsule [Macrobid] Macrobid 100 MG Macrobid 100 MG 05/21/2019 12:00:00 AM EST active 1 capsule with food eCW1 ([facility]) NITROFURANTOIN, MACROCRYSTALS 25 MG / Ni trofurantoin, Monohydrate 75 MG Oral Capsule [Macrobid] Macrobid 100 MG Macrobid 100 MG 05/21/2019 12:00:00 AM EST 1.0 {capsule_with_food} suspended Macrob id 100 MG eCW1 ([facility]) NITROFURANTOIN, MACROCRYSTALS 25 MG / Ni trofurantoin, Monohydrate 75 MG Oral Capsule [Macrobid] Macrobid 100 MG Macrobid 100 MG 05/21/2019 12:00:00 AM EST 1.0 {capsule_with_food} suspended Macrob id 100 MG eCW1 ([facility]) NITROFURANTOIN, MACROCRYSTALS 25 MG / Ni trofurantoin, Monohydrate 75 MG Oral Capsule [Macrobid] Macrobid 100 MG Macrobid 100 MG 05/21/2019 12:00:00 AM EST 1.0 {capsule_with_food} suspended Macrob id 100 MG eCW1 ([facility]) Myrbetriq 50 MG UNK 05/18/2019 12:00:00 AM EST 1.0 {tablet} active Myrbetriq 50 MG eCW1 ([facility]) Myrbetriq 50 MG UNK 05/18/2019 12:00:00 AM EST 1.0 {tablet} active Myrbetriq 50 MG eCW1 ([facility]) Myrbetriq 50 MG UNK 05/18/2019 12:00:00 AM EST 1.0 {tablet} active Myrbetriq 50 MG eCW1 ([facility]) Diclofenac Sodium 0.03 MG/MG Topical Gel Diclofenac Sodium 04/25/2019 12:00:00 AM EST active MEDENT ([facility]) Ciprofloxacin 500 MG Oral Tablet [Cipro] Cipro 500 MG Cipro 500 MG 04/20/2019 12:00:00 AM EST 1.0 {tablet} suspended Cipro 500 MG eCW1 ([facility]) Ciprofloxacin 500 MG Oral Tablet [Cipro] Cipro 500 MG Cipro 500 MG 04/20/2019 12:00:00 AM EST active 1 tablet eCW1 ([facility]) Ciprofloxacin 500 MG Oral Tablet [Cipro] Cipro 500 MG Cipro 500 MG 04/20/2019 12:00:00 AM EST 1.0 {tablet} suspended Cipro 500 MG eCW1 ([facility]) Ciprofloxacin 500 MG Oral Tablet [Cipro] Cipro 500 MG Cipro 500 MG 04/20/2019 12:00:00 AM EST 1.0 {tablet} suspended Cipro 500 MG eCW1 ([facility]) Ibuprofen 600 MG Oral Tablet Ibuprofen 12/10/2018 12:00:00 AM EDT ORAL completed MEDENT ([facility]) Insurance Providers Payer name Policy type / Coverage type Policy ID Covered democrat ID Covered democrat's relationship to nascimento Policy Nascimento Plan Information UMR [facility] CARE [id number] WI2 [id number] UMR [facility] CARE [id number] WI2 [id number] UMR [id number] SPO [id number] UMR O [id number] S [id number] UMR [id number] SPO [id number] UMR P [id number] S [id number] UMR [facility] [id number] WI2 [id number] I FAMILY HLTH PLUS [id number] SP [id number] POMCO [id number] SPO [id number] POMCO [id number] SPO [id number] UMR UNAVAILABLE SPO UNAVAILA BLE BCBS [facility] [id number] S [id number] ANSI-Commercial [id number] ANSI-Commercial [id number] ANSI-Commercial [id number] ANSI-Commercial [id number] Pomco/Umr (Old) [facility] Part B [id number] Family Dependent [id number] Umr (New Pom[employer]) Commercial [id number] Family Dependent [id number] Pom[employer]/Umr (Old) Commercial [id number] Family Dependent [id number] ANSI-Commercial [id number] ANSI-Commercial [id number] ANSI-Commercial [id number] ANSI-Commercial [id number] ANSI-Commercial [id number] ANSI-Commercial [id number] Pom[employer]/Umr (Old) Commercial [id number] Family Dependent [id number] POMCO [id number] HU2 [id number] ANSI-Commercial [id number] ANSI-Commercial [id number] ANSI-Commercial [id number] ANSI-Commercial [id number] ANSI-Commercial [id number] ANSI-Commercial [id number] ANSI-Commercial [id number] ANSI-Commercial [id number] Pom[employer]/Umr (Old) Commercial [id number] Family Dependent [id number] Umr [employer] Ppo Commercial [id number] Family Dependent [id number] Umr [employer] Ppo Commercial [id number] Family Dependent [id number] Pom[employer] Commercial [id number] Family Dependent [id number] POMCO [id number] HU2 [id number] [employer] Ppo Commercial [id number] Family Dependent [id number] Pom[employer] Ppo Commercial [id number] Family Dependent [id number] [employer] Ppo Commercial [id number] Family Dependent [id number] [employer] Ppo Commercial [id number] Family Dependent 89 [id number] [employer] Ppo Commercial [id number] Family Dependent 91 0 BLUE CROSS VARGAS PLAN [id number] SP [id number] UN COMMUNITY PLAN MCDO [id number] SP [id number] BLUE CROSS VARGAS PLAN UNAVAILABLE SP UNAVAILABLE HMO BLUE [id number] SP [id number] BLUE CHOICE OPTN FHP O [id number] S [id number] Problems, Conditions, and Diagnoses Code Display Name Description Problem Type Effective Dates Data Source(s) Z12.31 Encounter for screening mammogram for ma lignant neoplasm of breast ENCNTR SCREEN MAMMOGRAM FOR MALIGNANT NEOPLASM OF BREAST Diagnosis 01:00:00 PM [facility] Y93.89 Activity, other specified ACTIVITY, OTHER SPECIFIED Di agnosis 11/22/2019 09:54:00 PM [facility] Y92.[address] or not applicable UNSPECIFIED PLACE OR NOT APPLICABLE Diagnosis 11/22/2019 09:54:00 PM [facility] X58.XXXA Exposure to other specified factors, ini tial encounter EXPOSURE TO OTHER SPECIFIED FACTORS, INITIAL ENCOU Diagnosis 11/22/2019 09:54:00 P M [facility] Z79.899 Other rn long term care (current) 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 Diagnosis 11/22/2019 09:54:00 PM [facility] Z79.84 ASSISTED (CURRENT) USE OF ORAL HYPOGLYC EMIC DRUGS ASSISTED (CURRENT) USE OF ORAL HYPOGLYCEMIC DRUGS Diagnosis 11/22/2019 09:54:00 PM [facility] E11.9 Type 2 diabetes mellitus without complic ations TYPE 2 DIABETES MELLITUS WITHOUT COMPLICATIONS Diagnosis 11/22/2019 09:54:00 PM [facility] I10 Essential (primary) hypertension ESSENTIAL (PRIMARY) H YPERTENSION Diagnosis 11/22/2019 09:54:00 PM [facility] S29.012A Strain of muscle and tendon of back wall of thorax, initial encounter STRAIN OF MUSCLE AND TENDON OF BACK WALL OF THORAX Diagnosis 09:54:00 PM [facility] M54.9 Dorsalgia, unspecified DORSALGIA, UNSPECIFIED Diagnosi s 11/22/2019 09:54:00 PM [facility] Results ID Date Data Source [id number] 05/24/2020 12:00:00 PM EST [facility] Name Value Range Interpretation Code Description Data Yun rce(s) Supporting Document(s) SARS coronavirus 2 RNA Not Detected [facility] [place] This lab was ordered by [facility] and reported by [facility]. ID Date Data Source [id number] 02/01/2020 01:06:00 PM EDT [facility] DATE OF EXAMINATION: 01/25/2020 13:19 EDT MAMMO SCREEN BILAT WITH CAD HISTORY: Screening Based on the personal and family history information your patient supplied atthe time of imaging, her lifetime risk of breast cancer estimated date by theTyrer-Cuzick model is 5.5%. If anything changes in the personal and/or familyhistory this percentage could increase or decrease. Currently, NCCN and ACSrecommended adjunctive breast MRI screening starting at age 30 for women with a> 20-25% lifetime risk of developing breast cancer. Comparison is made to prior study dated 09/05/2017. 2-D bilateral digital mammogram in the CC and MLO planes were performed withsupplemental 3-D tomosynthesis of both breasts. The images were analyzed through the latest version of the [employer] ddiagnosis system. The patient states that her last clinical breast examination was last year. Craniocaudal and oblique lateral views of the breasts were obtained. Thebreasts are almost entirely fatty. There is no dominant mass, suspiciousclustered calcification, or architectural distortion. IMPRESSION: No mammographic evidence of malignancy. BIRAD 2 - Benign Findings, Routine Yearly Mammographic Follow-up recommended. 10-15% of cancers are not identified by mammography. This usually occurs whenthe mass is of the same radiographic density as the surrounding breast tissue,emphasizing the importance of breast self examination (BSE) and physicalexamination. A normal mammogram should not delay biopsy if a suspicious mass orabnormal findings are present upon physical examination. Electronically signed in PS360 by: Yohana Hopkins M.D. 02/01/2020 13:00 EDT Name Value Range Interpretation Code Description Data Yun rce(s) Supporting Document(s) ID Date Data Source [id number] 12/20/2019 12:00:00 AM EDT [facility] Suha Black DO Patient Name: DARREL SCHNEIDER3-[facility] Date of : 1965[address] Date of Exam: 12/20/2019KD Jacob [id number]#: Fax: [phone] EXAM: UGI AIR CONTRAST WITH SBFTCLINICAL INFORMATION: GERD. Epigastric pain.This procedure was performed by Trinidad Peña [facility], under thedirect supervision of Dr. Elena. Images were reviewed with Dr.Phill arias.The head of marketing adometry film shows no organomegaly or pathological masses. Theintestinal gas pattern is unremarkable.Liquid barium and gas producing crystals were given in the erect positionas well as liquid barium in the prone oblique position in order to performa double contrast upper GI examination.The oral and pharyngeal stages of deglutition were unremarkable.Esophageal transport is prompt and efficient and there is no evidence ofesophagitis, stricture, or mucosal ring. However, tertiary contractionswere seen throughout the course of the exam. There is a small hiatalhernia. Gastroesophageal reflux was visualized to the level of thethoracic inlet.The stomach ellsworth are normally outlined. The rugal folds are smooth andregular. There is no gastritis, neoplasm, or ulcerative disease.The duodenal ellsworth are normally outlined. The mucosal folds are smooth andregular. There is no duodenitis, peptic ulcer disease or neoplasm. Thevisualized portion of the proximal small bowel appears normal in course and caliber.Additional liquid barium was given at the end of the examination in orderto perform a small bowel follow through. Transit time was approximately 40minutes. During fluoroscopy, gentle palpation of the small bowel loopsshowed them to be freely movable and pliable without evidence of fixed orangulated loops. The small bowel mucosal pattern was normal in course andcaliber. There is no transition to suggest a partial small bowelobstruction. Spot filming of the terminal ileum showed it to be withinnormal limits.IMPRESSION:1. Multiple episodes of tertiary contractions throughout the course of theexam.2. Small hiatal hernia.3. Gastroesophageal reflux to the level of the thoracic inlet.Fluoroscopy time was 2 minutes 52 seconds at 15 pulses/second. This isequal to 1 minute 55 seconds continuous fluoroscopy time which is a 33%reduction in radiation.Dictated by Trinidad Peña, [facility], with Dr. Elena.RENETTA Sanchez/Manuel you for referring DANIEL SCHNEIDER to our office. Electronically Signed - BIRGIT ELENA DO 12/20/19 17:00 Name Value Range Interpretation Code Description Data Yun rce(s) Supporting Document(s) ID Date Data Source [id number] 12/20/2019 12:00:00 AM EDT [facility] Suha Black DO Patient Name: CHAITANYA [id number] [facility] Date of : 1965[facility] [address] [facility]: [facility] [id number] Fax: [phone] EXAM: US ABDOMEN, LIMITED SINGLE ORGAN,QUADRANTCLINICAL INFORMATION: Right upper quadrant pain.COMPARISON: which showed some fatty infiltration of the liver.Multiple ultrasonographic images of the liver show d iffuse increased echoesthroughout the hepatic parenchyma without evidence of a mass or ductaldilatation. The common bile duct measures between 3 and 4 mm in itsgreatest transverse dimension. Multiple ultrasonographic images of thegallbladder show no focal or diffuse gallbladder wall thickening. Thereare no echogenic foci within the gallbladder lumen, which casts acousticshadows. There is no pericholecystic edema. Images of the pancreaticregion show no gross abnormality. No significant change from the priorexam.The imaged portion of the right kidney is unremarkable.IMPRESSION:Fatty infiltration of the liver.Accredited by the [employer] in General Ultrasound.RENETTA Sanchez/Zainab you for referring DANIEL SCHNEIDER to our office. Electronically Signed - BIRGIT ELENA DO 12/21/19 14:06 Name Value Range Interpretation Code Description Data Yun rce(s) Supporting Document(s) ID Date Data Source [id number] 12/15/2019 12:09:00 PM EDT MEDENT ([facility]) Name Value Range Interpretation Code Description Data Yun rce(s) Supporting Document(s) Glucose [Mass/volume] in Serum or Plasma 131 mg/dL 74-99 [facility] ([facility]) 100-125 mg/dL PRE-DIABETES/FASTING >126 mg/dL DIABETES/FASTING Creatinine 0.8 mg/dL 0.6-1.3 [facility] Urea nitrogen [Mass/volume] in Serum or Plasma 15 mg/dL 7-18 [facility] ([facility]) Sodium [Moles/volume] in Serum or Plasma 138 meq/L 136-145 [facility] ([facility]) Carbon dioxide, total [Moles/volume] in Serum or Plasma 25 meq/L 21 -32 [facility] ([facility]) Chloride [Moles/volume] in Serum or Plasma 102 meq/L 98-107 [facility] ([facility]) Potassium [Moles/volume] in Serum or Plasma 4.4 meq/L 3.5-5.1 [facility] ([facility]) Total Bilirubin 0.2 mg/dL 0.2-1.0 [facility] ([facility]) Calcium [Mass/volume] in Serum or Plasma 8.8 mg/dL 8.5-10.1 [facility] ([facility]) Alkaline phosphatase isoenzyme [Units/volume] in Serum or Pl asma 93 mg/dL 46-116 [facility] ([facility]) Aspartate aminotransferase [Enzymatic activity/volume] in Serum or Plasma 19 U/L 15-37 [facility] ([facility] ) Proteinase 3 Ab [Units/volume] in Serum 8.3 g/dL 6.4-8.2 [facility] ([facility]) NOTE: RESULT VERIFIED. Albumin [Mass/volume] in Serum or Plasma 3.7 g/dL 3.4-5.0 [facility] ([facility]) Alanine aminotransferase [Enzymatic activity/volume] in Seru m or Plasma 31 U/L 12-78 [facility] ([facility]) Glomerular filtration rate/1.73 sq M pre dicted among blacks [Volume Rate/Area] in Serum or Plasma by Creatinine-based formula (MDRD) Laboratory test result [facility] <content>CHRONIC KIDNEY DISEASE STAGING PER NKF</content>
<content></content>
<content>STAGE I & II GFR >= 60 NORMAL TO MILDLY DECREASED</content>
<content>STAGE III GFR 30-59 MODERATELY DECREASED</content>
<content>STAGE IV GFR 15-29 SEVERELY DECREASED</content>
<content>STAGE V GFR <15 VERY LITTLE GFR LEFT</content>
<content>ESRD GFR <15 ON AUTOMOBILE SERVICE ADVISOR</content>
<content></content> Glomerular filtration rate/1.73 sq M pre dicted among non-blacks [Volume Rate/Area] in Serum or Plasma by Creatinine-based formula (MDRD) Laboratory test result [facility] ([facility] ) A/G Ratio 0.80 CALC 1.00-1.90 [facility]) ID Date Data Source [id number] 11/29/2019 11:58:00 AM EDT [facility]) Name Value Range Interpretation Code Description Data Yun rce(s) Supporting Document(s) Cyclic citrullinated peptide IgG Ab [Units/volume] in Serum or Plasma Laboratory test result [facility] ([facility] ) Rheumatoid Factor Quant Laboratory test result [facility] ID Date Data Source [id number] 12/08/2019 04:06:00 PM EDT [facility] Name Value Range Interpretation Code Description Data Yun rce(s) Supporting Document(s) SHANTA Direct Negative Negative [facility] ID Date Data Source [id number] 12/09/2019 12:05:00 AM EDT [facility] Name Value Range Interpretation Code Description Data Yun rce(s) Supporting Document(s) CCP Antibodies IgG/IgA 5 units 0-19 [facility] Negative <20 Weak positive 20 - 39 Moderate positive 40 - 59 Strong positive >59 ID Date Data Source [id number] 12/08/2019 04:06:00 PM EDT [facility] Name Value Range Interpretation Code Description Data Yun rce(s) Supporting Document(s) Please note [facility] The date recorded on the requisition ind icates the sample(s) receivedwere greater than 72 hours old upon arrival in our laboratory. ID Date Data Source [id number] 11/29/2019 11:06:00 AM EDT [facility] ([facility]) Name Value Range Interpretation Code Description Data Yun rce(s) Supporting Document(s) Erythrocyte sedimentation rate by Westergren method 37 mm/hr 0-15 [facility] ([facility]) ID Date Data Source [id number] 11/29/2019 11:06:00 AM EDT [facility] Name Value Range Interpretation Code Description Data Yun rce(s) Supporting Document(s) Sodium [Moles/volume] in Serum or Plasma 140 meq/L 136-145 [facility] ([facility]) Creatinine 0.8 mg/dL 0.6-1.3 [facility] Glucose [Mass/volume] in Serum or Plasma 119 mg/dL 74-99 [facility] ([facility]) 100-125 mg/dL PRE-DIABETES/FASTING >126 mg/dL DIABETES/FASTING Urea nitrogen [Mass/volume] in Serum or Plasma 18 mg/dL 7-18 [facility] ([facility]) Carbon dioxide, total [Moles/volume] in Serum or Plasma 25 meq/L 21 -32 [facility] Potassium [Moles/volume] in Serum or Plasma 4.2 meq/L 3.5-5.1 [facility] Chloride [Moles/volume] in Serum or Plasma 102 meq/L 98-107 [facility] Glomerular filtration rate/1.73 sq M pre dicted among non-blacks [Volume Rate/Area] in Serum or Plasma by Creatinine-based formula (MDRD) Laboratory test result [facility] Glomerular filtration rate/1.73 sq M pre dicted among blacks [Volume Rate/Area] in Serum or Plasma by Creatinine-based formula (MDRD) Laboratory test result [facility] <content>CHRONIC KIDNEY DISEASE STAGING PER NKF</content>
<content></content>
<content>STAGE I & II GFR >= 60 NORMAL TO MILDLY DECREASED</content>
<content>STAGE III GFR 30-59 MODERATELY DECREASED</content>
<content>STAGE IV GFR 15-29 SEVERELY DECREASED</content>
<content>STAGE V GFR <15 VERY LITTLE GFR LEFT</content>
<content>ESRD GFR <15 ON AUTOMOBILE SERVICE ADVISOR</content>
<content></content> Calcium [Mass/volume] in Serum or Plasma 9.0 mg/dL 8.5-10.1 [facility] ID Date Data Source [id number] 11/29/2019 11:06:00 AM EDT [facility] ([facility]) Name Value Range Interpretation Code Description Data Yun rce(s) Supporting Document(s) Hemoglobin A1c/Hemoglobin.total in Blood 6.1 g/dL 4.8-5.6 [facility] Lab Result Notes: Pre-Diabetes 5.7 - 6.4 % Diabetes = or > 6.5% Glucose mean value [Mass/volume] in Blood Estimated fr om glycated hemoglobin 128 mg/dL 60-110 [facility] ([facility] ) ID Date Data Source [id number] 11/29/2019 11:06:00 AM EDT [facility] ([facility]) Name Value Range Interpretation Code Description Data Yun rce(s) Supporting Document(s) Hemoglobin A1c/Hemoglobin.total in Blood Laboratory test result [facility] ([facility]) ID Date Data Source [id number] 11/23/2019 09:01:00 PM EDT [facility] Patient: DANIEL SCHNEIDER Observation Re port - Physicians/Mid Levels HealthcareVisitID: [id number] [place] [address] [phone], FRegistran[facility], [place] Date/Time: 11/22/2019 21:19 Weight:97.5 kg (S). Height/Length:61 inches (S). 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 Medications:Oxybutynin Chloride Oral 15 mg, daily, last dose this am .Omeprazole Oral 20 mg, daily, last dose two days ago.MetFORMIN HCl Oral 500 mg, daily, last dose this am .Lisinopril Oral 5 mg, daily, last dose this am .Gabapentin Oral 100 mg, 2x a day, last dose this am (300 mg at night time ).Escitalopram Oxalate Oral (Tablet 5 mg) 1 tablet, daily, last dose this am . Allergies:No Known Drug Allergy. FAMILY HISTORYNo significant family medical history. (Electronically signed by Virginia Butts P.A. 11/22/2019 23:12) Addenda for DANIEL SCHNEIDER VisitID: [id number] Date: 11/22/2019 11/23/2019 21:00Skelaxin 800 mg tablet Take 1 tablet every eight hours as needed for pain for 5 days -- Dispense 15 tablet. Refills: 0. Substitution permitted.Pharmacy - [phone] , [place] [address]. FaxNumber: .(Electronically signed by Virginia Butts - 11/23/2019 21:00) Name Value Range Interpretation Code Description Data [facility] rce(s) Supporting Document(s) ID Date Data Source [id number] 11/22/2019 11:50:00 PM EDT [facility] Patient: DANIEL SCHNEIDER Observation Re [facility] - Physicians/Mid Levels HealthcareVisitID: [id number] [place] [address] [phone], FRegistration Date/Time: 11/22/2019 21:19 Weight:97.5 kg (S). Height/Length:61 inches (S). 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 Medications:Oxybutynin Chloride Oral 15 mg, daily, last dose this am .Omeprazole Oral 20 mg, daily, last dose two days ago.MetFORMIN HCl Oral 500 mg, daily, last dose this am .Lisinopril Oral 5 mg, daily, last dose this am .Gabapentin Oral 100 mg, 2x a day, last dose this am (300 mg at night time ).Escitalopram Oxalate Oral (Tablet 5 mg) 1 tablet, daily, last dose this am . Allergies:No Known Drug Allergy. FAMILY HISTORYNo significant family medical history. (Electronically signed by Virginia Butts, P.AOtoniel 11/22/2019 23:12) Name Value Range Interpretation Code Description Data Yun rce(s) Supporting Document(s) ID Date Data Source [id number] 07/10/2019 05:26:00 PM EDT [facility] ([facility]) Name Value Range Interpretation Code Description Data [facility] rce(s) Supporting Document(s) Hepatitis C virus Ab [Units/volume] in Serum by Immuno assay Laboratory test result [facility] ([facility] ) Hepatitis B virus surface Ag [Presence] in Serum or Pl asma by Immunoassay Laboratory test result [facility] ([facility]) Hepatitis B virus surface Ab [Presence] in Serum by Im munoassay Laboratory test result [facility] ([facility] ) HIV 1+2 Ab [Presence] in Serum Laboratory test result [facility] ([facility]) <content>This assay was performed utiliz ing a chemiluminescent</content>
<content>principle technique for the simultaneous qualitative</content>
<content>detection of HIV-1 p24 antigen & antibodies to HIV-1</content>
<content>(including group O) & HIV-2 using the Siem[employer] Technology[employer] XP</content>
<content>system.</content>
<content>The estimated 95% confidence interval for sensitivity of</content>
<content>this antigen/antibody combination assay for HIV-1&2</content>
<content>antibodies is 99.7-100% and HIV p24 antigen is 89.4-99.9%.</content>
<content>The estimated 95% confidence interval for specificity of</content>
<content>this antigen/antibody combination in low risk populations is</content>
<content>99.6-99.8%.</content>
<content></content> ID Date Data Source [id number] 07/10/2019 05:26:00 PM EDT [facility] ([facility]) Name Value Range Interpretation Code Description Data Yun rce(s) Supporting Document(s) Blood Urea Nitrogen 12 mg/dL 7-18 [facility] ([facility]) Glucose, Fasting 120 mg/dL 70-100 [facility] ([facility]) Creatinine For GFR 0.68 mg/dL 0.55-1.30 [facility] ([facility]) Sodium Level 139 meq/L 136-145 [facility] ([facility]) Glomerular Filtration Rate Laboratory test result [facility] <content>Units are mL/min/1.73 m2</content>
<content></content>
<content>Chronic Kidney Disease Staging per NKF:</content>
<content></content>
<content>Stage I & II GFR >=60 Normal to Mildly Decreased</content>
<content>Stage III GFR 30- 59 Moderately Decreased</content>
<content>Stage IV GFR 15-29 Severely Decreased</content>
<content>Stage V GFR <15 Very Little GFR Left</content>
<content>ESRD GFR <15 on AUTOMOBILE SERVICE ADVISOR</content>
<content></content> Potassium Serum 4.0 meq/L 3.5-5.1 [facility] ([facility]) Chloride Level 105 meq/L 98-107 [facility] ([facility]) Anion Gap 5 meq/L 8-16 [facility] ([facility]) Carbon Dioxide Level 29 meq/L 21-32 [facility] ([facility]) Calcium Level 8.9 mg/dL 8.5-10.1 [facility] ([facility]) Ast/Sgot 18 U/L 7-37 [facility] ([facility]) Alt/SGPT 32 U/L 12-78 [facility]) Bilirubin,Total 0.2 mg/dL 0.2-1.0 [facility] ([facility]) Alkaline Phosphatase 102 U/L 45-117 [facility] ([facility]) Total Protein 8.0 GM/DL 6.4-8.2 [facility] ([facility]) Albumin 3.8 GM/DL 3.2-5.2 [facility] ([facility]) Albumin/Globulin Ratio 0.90 1.00-1.93 [facility] ([facility]) ID Date Data Source [id number] 07/10/2019 05:26:00 PM EDT [facility] ([facility]) Name Value Range Interpretation Code Description Data Yun rce(s) Supporting Document(s) White Blood Count 6.1 10 4.0-10.0 [facility] ([facility]) Red Blood Count 4.36 10 4.00-5.40 [facility] ([facility]) Hemoglobin 11.9 g/dL 12.0-15.5 [facility] Hematocrit 37.9 % 36.0-47.0 [facility]) Mean Corpuscular Volume 86.9 fl 80.0-96.0 [facility] ([facility]) Mean Corpuscular Hemoglobin 27.3 pg 27.0-33.0 [facility] ([facility]) Mean Corpuscular HGB Conc 31.4 g/dL 32.0-36.5 [facility] ([facility]) Red Cell Distribution Width 13.8 % 11.5-14.5 [facility] ([facility]) Platelet Count, Automated 240 10 150-450 [facility] ([facility]) Neutrophils % 52.7 % 36.0-66.0 [facility] Lymph % 38.2 % 24.0-44.0 [facility]) [place] % 6.4 % 0.0-5.0 [facility]) Eos % 1.8 % 0.0-3.0 [facility]) Baso % 0.7 % 0.0-1.0 [facility]) Immature Granulocyte % 0.2 % 0-3.0 [facility] ([facility]) Nucleated Red Blood Cell % 0.0 % 0-0 [facility] ([facility]) Lymph # 2.3 10 1.5-5.0 [facility]) Neutrophils # 3.2 10 1.5-8.5 [facility] ([facility]) [place] # 0.4 10 0.0-0.8 [facility]) Baso # 0.0 10 0.0-0.2 [facility]) Eos # 0.1 10 0.0-0.5 [facility]) ID Date Data Source [id number] 05/31/2019 11:41:00 AM EST [facility] ([facility]) Name Value Range Interpretation Code Description Data Yun rce(s) Supporting Document(s) Urine Creatinine 178.8 mg/dL 30.0-125.0 [facility] Microalbumin Urine 11.9 mg/L 1.3-20.0 [facility] Microalb/Creat Ratio 6.7 ug/mg 0.0-30.0 [facility] ID Date Data Source [id number] 05/31/2019 11:41:00 AM EST [facility] ([facility]) Name Value Range Interpretation Code Description Data Yun rce(s) Supporting Document(s) Urea nitrogen [Mass/volume] in Serum or Plasma 12 mg/dL 7-18 [facility] ([facility]) Glucose [Mass/volume] in Serum or Plasma 98 mg/dL 74-99 [facility] ([facility]) 100-125 mg/dL PRE-DIABETES/FASTING >126 mg/dL DIABETES/FASTING Sodium [Moles/volume] in Serum or Plasma 141 meq/L 136-145 [facility] ([facility]) Creatinine 0.7 mg/dL 0.6-1.3 [facility] Potassium [Moles/volume] in Serum or Plasma 4.3 meq/L 3.5-5.1 [facility] ([facility]) Carbon dioxide, total [Moles/volume] in Serum or Plasma 29 meq/L 21 -32 [facility] ([facility]) Calcium [Mass/volume] in Serum or Plasma 8.9 mg/dL 8.5-10.1 [facility] ([facility]) Chloride [Moles/volume] in Serum or Plasma 103 meq/L 98-107 [facility] ([facility]) Alkaline phosphatase isoenzyme [Units/volume] in Serum or Pl asma 99 mg/dL 46-116 [facility] ([facility]) Aspartate aminotransferase [Enzymatic activity/volume] in Serum or Plasma 17 U/L 15-37 [facility] ([facility] ) Total Bilirubin 0.4 mg/dL 0.2-1.0 [facility] ([facility]) Albumin [Mass/volume] in Serum or Plasma 4.0 g/dL 3.4-5.0 [facility] ([facility]) Proteinase 3 Ab [Units/volume] in Serum 7.9 g/dL 6.4-8.2 [facility] ([facility]) Alanine aminotransferase [Enzymatic activity/volume] in Seru m or Plasma 31 U/L 12-78 [facility] Glomerular filtration rate/1.73 sq M pre dicted among blacks [Volume Rate/Area] in Serum or Plasma by Creatinine-based formula (MDRD) >= 60 mL/min [facility] <content>CHRONIC KIDNEY DISEASE STAGING PER NKF</content>
<content></content>
<content>STAGE I & II GFR >= 60 NORMAL TO MILDLY DECREASED</content>
<content>STAGE III GFR 30-59 MODERATELY DECREASED</content>
<content>STAGE IV GFR 15-29 SEVERELY DECREASED</content>
<content>STAGE V GFR <15 VERY LITTLE GFR LEFT</content>
<content>ESRD GFR <15 ON AUTOMOBILE SERVICE ADVISOR</content>
<content></content> A/G Ratio 1.03 CALC 1.00-1.90 [facility] ([facility]) Glomerular filtration rate/1.73 sq M pre dicted among non-blacks [Volume Rate/Area] in Serum or Plasma by Creatinine-based formula (MDRD) >= 60 mL/min [facility] ID Date Data Source [id number] 05/31/2019 11:41:00 AM EST [facility] Name Value Range Interpretation Code Description Data Yun rce(s) Supporting Document(s) Hemoglobin A1c/Hemoglobin.total in Blood 6.5 g/dL 4.8-5.6 [facility] Lab Result Notes: Pre-Diabetes 5.7 - 6.4 % Diabetes = or > 6.5% Glucose mean value [Mass/volume] in Blood Estimated fr om glycated hemoglobin 140 mg/dL 60-110 [facility] ID Date Data Source [id number] 05/31/2019 11:41:00 AM EST [facility] Name Value Range Interpretation Code Description Data Yun rce(s) Supporting Document(s) Hemoglobin [Mass/volume] in Blood 11.9 g/dL 12.0-18.0 [facility] ([facility]) NOTE: RESULT VERIFIED. Erythrocytes [#/volume] in Blood by Automated count 4.28 x10*6/UL 4.2 0-6.30 [facility] ([facility]) Leukocytes [#/volume] in Blood by Automated count 6.0 x10*3/UL 4.1-10 .9 [facility] ([facility]) MCV 82.2 fL 80.0-97.0 [facility] Hematocrit [Volume Fraction] of Blood by Automated count 35.2 % 3 7.0-51.0 [facility] ([facility]) Erythrocyte distribution width [Ratio] by Automated count 13.2 % 11.6-13.7 [facility] ([facility]) MCH 27.8 pg 26.0-32.0 [facility]) MCHC 33.8 g/dL 31.0-38.0 [facility] Platelets [#/volume] in Blood by Automated count 229 x10*3/UL 140-440 [facility] ([facility]) Lymph % 32.8 % 10.0-58.5 [facility]) MPV 8.0 FL 7.8-11.0 [facility]) Mid % 7.8 % 1.7-9.3 [facility]) Neut % 59.4 % 37.0-92.0 [facility] Lymph # 1.9 x10*3/UL 0.6-4.1 [facility] ([facility]) Neut # 3.5 x10*3/UL 2.0-7.8 [facility] ([facility]) Mid # 0.6 x10*3/UL 0.1-0.6 [facility] ([facility]) Procedure Social History Code Duration Value Status Description Data Source(s ) Smoking 04/06/2020 12:00:00 AM EST UNK completed [facility]CW1 ([facility]) Smoking 04/06/2020 12:00:00 AM EST UNK completed eCW1 ([facility]) Smoking 04/06/2020 12:00:00 AM EST UNK completed eCW1 ([facility]) Vital Signs ID Date Data Source UNK Name Value Range Interpretation Code Description Data Source(s) Diastolic blood pressure 74 mm[Hg] 74 mm[Hg] eCW1 ([facility]) Systolic blood pressure 130 mm[Hg] 130 mm[Hg] e CW1 ([facility]) Body temperature 96.1 [degF] 96.1 [degF] eCW1 ( [facility]) Respiratory rate 18 /min 18 /min eCW1 ([facility]) Heart rate 66 /min 66 /min eCW1 ([facility]) Body mass index (BMI) [Ratio] 39.87 kg/m2 39.87 kg/m2 eCW1 ([facility]) Body height 62 [in_i] 62 [in_i] eCW1 ([facility]) Body weight 218 [lb_av] 218 [lb_av] eCW1 ([facility]) Body mass index (BMI) [Ratio] 38.8 kg/m2 38.8 k g/m2 [facility] ([facility]) Oxygen saturation in Arterial blood by Pulse oximetry 98 % 98 % [facility] ([facility]) Body weight 221.00 [lb_av] 221.00 [lb_av] [facility] T ([facility]) Body height 63.25 [in_i] 63.25 [in_i] [facility] ([facility]) 5'3.25" Heart rate 66 /min 66 /min [facility] ([facility]) Diastolic blood pressure 72 mm[Hg] 72 mm[Hg] [facility] ([facility]) Systolic blood pressure 128 mm[Hg] 128 mm[Hg] M EDENT ([facility]) Body mass index (BMI) [Ratio] 39.0 kg/m2 39.0 k g/m2 [facility] ([facility]) Oxygen saturation in Arterial blood by Pulse oximetry 97 % 97 % [facility] ([facility]) RM Air Body weight 222.00 [lb_av] 222.00 [lb_av] [facility] T ([facility]) Body height 63.25 [in_i] 63.25 [in_i] [facility] ([facility]) 5'3.25" Heart rate 67 /min 67 /min [facility] ([facility]) Diastolic blood pressure 70 mm[Hg] 70 mm[Hg] [facility] ([facility]) Systolic blood pressure 120 mm[Hg] 120 mm[Hg] [facility] ([facility]) Body mass index (BMI) [Ratio] 38.5 kg/m2 38.5 k g/m2 [facility] ([facility]) Oxygen saturation in Arterial blood by Pulse oximetry 98 % 98 % [facility] ([facility]) RM Air Body weight 219.00 [lb_av] 219.00 [lb_av] [facility] T ([facility]) Body height 63.25 [in_i] 63.25 [in_i] [facility] ([facility]) 5'3.25" Heart rate 70 /min 70 /min [facility] ([facility]) Diastolic blood pressure 68 mm[Hg] 68 mm[Hg] [facility] ([facility]) Systolic blood pressure 124 mm[Hg] 124 mm[Hg] [facility] ([facility]) Body mass index (BMI) [Ratio] 39.7 kg/m2 39.7 k g/m2 [facility] ([facility]) Body height 62 [in_i] 62 [in_i] [facility] ([facility]) 5'2" Body weight 217.00 [lb_av] 217.00 [lb_av] [facility] T ([facility], [facility]) Body temperature 97.9 [degF] 97.9 [degF] [facility] ([facility], [facility]) Oxygen saturation in Arterial blood by Pulse oximetry 98 % 98 % [facility] ([facility], [facility]) Respiratory rate 16 /min 16 /min [facility] ( [facility]) Heart rate 65 /min 65 /min [facility] ([facility]) Diastolic blood pressure 76 mm[Hg] 76 mm[Hg] [facility] ([facility]) Systolic blood pressure 139 mm[Hg] 139 mm[Hg] M EDENT ([facility]) Patient Treatment Plan of Care Planned Activity Planned Date Details Description Data Source (s) 24 HR Oxybutynin chloride 15 MG Extended Release Oral Tablet 05/26/2020 12:00:00 AM EST eCW1 ([facility]) Phenazopyridine hydrochloride 100 MG Oral Tablet [Pyri dium] 04/06/2020 12:00:00 AM EST eCW1 ([facility]) Phenazopyridine hydrochloride 100 MG Oral Tablet [Pyri dium] 04/06/2020 12:00:00 AM EST eCW1 ([facility]) Phenazopyridine hydrochloride 100 MG Oral Tablet [Pyri dium] 04/06/2020 12:00:00 AM EST eCW1 ([facility]) NITROFURANTOIN, MACROCRYSTALS 25 MG / Ni trofurantoin, Monohydrate 75 MG Oral Capsule [Macrobid] 05/21/2019 12:00:00 AM EST [facility]C W[facility] [facility] [place] Myrbetriq 50 MG 05/18/2019 12:00:00 AM EST eCW1 ([facility] [place]) Myrbetriq 50 MG 05/18/2019 12:00:00 AM EST eCW1 ([facility] [place]) Ciprofloxacin 500 MG Oral Tablet [Cipro] 04/20/2019 12:00:00 AM EST eCW1 ([facility] [place])
[2020-05-29] MEDS ORDERED: propofoL 200 MG/20 ML VIAL As Ordered ONE ×3 (10:41→12:12)
[2020-05-29] MEDS ORDERED: LIDOCAINE 2% 100MG/5ML SDV (FOR ANES.) As Ordered ONE (10:41)
[2020-05-29] MEDS ORDERED: NOXI1TAB PO (10:48)
[2020-05-29] MEDS ORDERED: PHEN1TAB73 PO (10:48)
--- NOTE | 2020-05-29 11:09 | ROOR ---
Patient Name: Ekta Bello Procedure Date: 05/29/2020 10:52 AM Date of : 1965 Age: 54 Room: [facility] Gender: Female Note Status: Finalized Procedure: Upper GI endoscopy Indications: Heartburn Providers: Virgil Ray MD Referring MD: Suha Black DO Requesting Provider: Medicines: Monitored Anesthesia Care Complications: No immediate complications. Procedure: Pre-Anesthesia Assessment: - Prior to the procedure, a History and Physical was performed, and patient medications and allergies were reviewed. The patient is competent. The risks and benefits of the procedure and the sedation options and risks were discussed with the patient. All questions were answered and informed consent was obtained. Patient identification and proposed procedure were verified by the physician and the nurse in the procedure room. Mental Status Examination: alert and oriented. Airway Examination: normal oropharyngeal airway and neck mobility. Respiratory Examination: clear to auscultation. CV Examination: normal. Prophylactic Antibiotics: The patient does not require prophylactic antibiotics. Prior Anticoagulants: The patient has taken no previous anticoagulant or antiplatelet agents. ASA Grade Assessment: II - A patient with mild systemic disease. After reviewing the risks and benefits, the patient was deemed in satisfactory condition to undergo the procedure. The anesthesia plan was to use monitored anesthesia care (MAC). Immediately prior to administration of medications, the patient was re-assessed for adequacy to receive sedatives. The heart rate, respiratory rate, oxygen saturations, blood pressure, adequacy of pulmonary ventilation, and response to care were monitored throughout the procedure. The physical status of the patient was re-assessed after the procedure. The Endoscope was introduced through the mouth, and advanced to the second part of duodenum. The upper GI endoscopy was accomplished without difficulty. The patient tolerated the procedure well. Findings: The examined esophagus was normal. The Z-line was regular and was found 38 cm from the incisors. Scattered mild inflammation characterized by congestion (edema), erythema and granularity was found in the gastric antrum. Biopsies were taken with a cold forceps for Helicobacter pylori testing. Verification of patient identification for the specimen was done by the physician and nurse using the patient's name, date and medical record number. Estimated blood loss was minimal. The duodenal bulb and second portion of the duodenum were normal. Impression: - Normal esophagus. - Z-line regular, 38 cm from the incisors. - Gastritis. Biopsied. - Normal duodenal bulb and second portion of the duodenum. Recommendation: - Patient has a contact number available for emergencies. The signs and symptoms of potential delayed complications were discussed with the patient. Return to normal activities tomorrow. Written discharge instructions were provided to the patient. - High fiber diet and Anti-acid reflux diet -- small meals, sit upright atleast 1 hour after meals, avoid fatty/ oily foods and avoid foods that cause reflux. - Continue present medications. - Await pathology results. - Follow an antireflux regimen. - Telephone GI clinic for pathology results in 2 weeks. - Follow the recommendations as per the other procedure note. - Return to primary care physician. Procedure Code(s): --- Professional --- 65351, Esophagogastroduodenoscopy, flexible, transoral; with biopsy, single or multiple Diagnosis Code(s): --- Professional --- K29.70, Gastritis, unspecified, without bleeding R12, Heartburn CPT copyright 2019 [employer]. All rights reserved. The codes documented in this report are preliminary and upon invoice coder review may be revised to meet current compliance requirements. Virgil Ray MD Virgil Ray MD 05/29/2020 11:08:57 AM Electronically signed by Virgil Ray MD Number of Addenda: 0 Note Initiated On: 05/29/2020 10:52 AM Estimated Blood Loss: Estimated blood loss was minimal.
--- NOTE | 2020-05-29 11:51 | ROOR ---
Patient Name: Ekta Bello Procedure Date: 05/29/2020 10:53 AM Date of : 1965 Age: 54 Room: [facility] Gender: Female Note Status: Finalized Procedure: Colonoscopy Indications: Screening for colorectal malignant neoplasm Providers: Virgil Ray MD Referring MD: Suha Black DO Requesting Provider: Medicines: Monitored Anesthesia Care Complications: No immediate complications. Procedure: Pre-Anesthesia Assessment: - Prior to the procedure, a History and Physical was performed, and patient medications and allergies were reviewed. The patient is competent. The risks and benefits of the procedure and the sedation options and risks were discussed with the patient. All questions were answered and informed consent was obtained. Patient identification and proposed procedure were verified by the physician, the nurse and the anesthesiologist in the procedure room. Mental Status Examination: alert and oriented. Airway Examination: normal oropharyngeal airway and neck mobility. Respiratory Examination: clear to auscultation. CV Examination: normal. Prophylactic Antibiotics: The patient does not require prophylactic antibiotics. Prior Anticoagulants: The patient has taken no previous anticoagulant or antiplatelet agents. ASA Grade Assessment: II - A patient with mild systemic disease. After reviewing the risks and benefits, the patient was deemed in satisfactory condition to undergo the procedure. The anesthesia plan was to use monitored anesthesia care (MAC). Immediately prior to administration of medications, the patient was re-assessed for adequacy to receive sedatives. The heart rate, respiratory rate, oxygen saturations, blood pressure, adequacy of pulmonary ventilation, and response to care were monitored throughout the procedure. The physical status of the patient was re-assessed after the procedure. The Colonoscope was introduced through the anus and advanced to the terminal ileum, with identification of the appendiceal orifice and IC valve. The colonoscopy was performed without difficulty. The patient tolerated the procedure well. The quality of the bowel preparation was good. The terminal ileum, ileocecal valve, appendiceal orifice, and rectum were photographed. Scope insertion time was 2 minutes. Scope withdrawal time was 8 minutes. The total duration of the procedure was 10 minutes. Findings: The perianal and digital rectal examinations were normal. The terminal ileum appeared normal. A 4 mm polyp was found in the recto-sigmoid colon. The polyp was sessile. The polyp was removed with a cold biopsy forceps. Resection and retrieval were complete. Verification of patient identification for the specimen was done by the physician and nurse using the patient's name, date and medical record number. Estimated blood loss was minimal. Non-bleeding external and internal hemorrhoids were found during retroflexion. The hemorrhoids were medium-sized. Impression: - The examined portion of the ileum was normal. - One 4 mm polyp at the recto-sigmoid colon, removed with a cold biopsy forceps. Resected and retrieved. - Non-bleeding external and internal hemorrhoids. Recommendation: - Patient has a contact number available for emergencies. The signs and symptoms of potential delayed complications were discussed with the patient. Return to normal activities tomorrow. Written discharge instructions were provided to the patient. - High fiber diet. - Continue present medications. - Use fiber, for example Citrucel, Fibercon, Konsyl or Metamucil. - Await pathology results. - Repeat colonoscopy in 5-10 years for surveillance based on pathology results. - Telephone GI clinic for pathology results in 2 weeks. - Return to primary care physician. Procedure Code(s): --- Professional --- 39486, Colonoscopy, flexible; with biopsy, single or multiple Diagnosis Code(s): --- Professional --- Z12.11, Encounter for screening for malignant neoplasm of colon K64.8, Other hemorrhoids K63.5, Polyp of colon CPT copyright 2019 [employer]. All rights reserved. The codes documented in this report are preliminary and upon talent acquisition specialist review may be revised to meet current compliance requirements. Virgil Ray MD Virgil Ray MD 05/29/2020 11:50:53 AM Electronically signed by Virgil Ray MD Number of Addenda: 0 Note Initiated On: 05/29/2020 10:53 AM Estimated Blood Loss: Estimated blood loss was minimal.
[2020-05-29 12:10] VITALS: BP 167/79
== END 2020-05-29 12:17 | disposition home or self-care (01) ==
LOC: M OPP 10:16
PROVIDERS: ATTEND Internal Medicine Gastroenterology
DX: Z12.11 Encounter for screening for malignant neoplasm of colon (principal); R12 Heartburn; K63.5 Polyp of colon; K64.8 Other hemorrhoids; D13.1 Benign neoplasm of stomach; K29.70 Gastritis, unspecified, without bleeding; I10 Essential (primary) hypertension; E78.5 Hyperlipidemia, unspecified; E11.9 Type 2 diabetes mellitus without complications; K21.9 Gastro-esophageal reflux disease without esophagitis; N30.10 Interstitial cystitis (chronic) without hematuria; M19.90 Unspecified osteoarthritis, unspecified site; F41.9 Anxiety disorder, unspecified; Z87.891 Personal history of nicotine dependence; Z79.84 Long term (current) use of oral hypoglycemic drugs; Z79.899 Other long term (current) drug therapy; Z82.49 Family history of ischemic heart disease and other diseases of the circulatory system; Z83.3 Family history of diabetes mellitus; Z80.3 Family history of malignant neoplasm of breast; Z80.1 Family history of malignant neoplasm of trachea, bronchus and lung

== ENCOUNTER → 2020-10-06 | Outpatient (REF) | payer OTHER ==
[~2020-10-06] MED LIST changes: +EMTR1TAB16 PO; +GABA-283 PO; -GABA-845 PO; +LISI10TA22 PO; -LISI10TA4 PO; +NOXI1TAB PO; -NS 1,000 ML IV ONE; +PHEN1TAB73 PO; -TRUVTAB PO
[2020-10-06 12:59] LABS: BACTERIA, URINE AUTO 2+ (NEGATIVE); RBC, URINE AUTO 2 /HPF (0-3); SQUAMOUS EPITHELIAL CELL UR AU 1 /HPF (0-6); WBC, URINE AUTO 101 /HPF (0-3)
== END ==
LOC: M SMT 12:29
PROVIDERS: ATTEND Specialist
DX: N30.90 Cystitis, unspecified without hematuria (principal)

== ENCOUNTER → 2020-11-29 | Outpatient (CLI) | payer OTHER ==
[2020-11-29 13:47] LABS: BASO # 0.1 10^3/uL (0.0-0.2); BASO % 0.9 % (0.0-1.0); EOS # 0.1 10^3/uL (0.0-0.5); EOS % 1.8 % (0.0-3.0); HEMATOCRIT 36.2 % (36.0-47.0); HEMOGLOBIN 11.3 g/dl (12.0-15.5); LYMPH # 2.4 10^3/uL (1.5-5.0); LYMPH % 41.9 % (24.0-44.0); MEAN CORPUSCULAR HEMOGLOBIN 26.9 pg (27.0-33.0); MEAN CORPUSCULAR HGB CONC 31.2 g/dl (32.0-36.5); MEAN CORPUSCULAR VOLUME 86.2 fl (80.0-96.0); MONO # 0.3 10^3/uL (0.0-0.8); MONO % 5.5 % (2.0-8.0); NEUTROPHILS # 2.8 10^3/uL (1.5-8.5); NEUTROPHILS % 49.7 % (36.0-66.0); PLATELET COUNT, AUTOMATED 235 10^3/uL (150-450); WHITE BLOOD COUNT 5.6 10^3/uL (4.0-10.0)
[2020-11-29 14:19] LABS: HEMOGLOBIN A1c 5.8 %
[2020-11-29 14:25] LABS: FOLATE 19.9 NG/ML; PERCENT SATURATION 17.5 % (13.2-45.0)
== END ==
LOC: M LAB 12:42
PROVIDERS: ATTEND Family Medicine
DX: E11.9 Type 2 diabetes mellitus without complications (principal)

== ENCOUNTER → 2021-01-05 | Outpatient (REF) | payer OTHER ==
[2021-01-05 17:38] LABS: BACTERIA, URINE AUTO 1+ (NEGATIVE); MUCUS, URINE SMALL (NEGATIVE); RBC, URINE AUTO 1 /HPF (0-3); SQUAMOUS EPITHELIAL CELL UR AU 2 /HPF (0-6); WBC, URINE AUTO 5 /HPF (0-3)
== END ==
LOC: M SMT 17:02
PROVIDERS: ATTEND Specialist
DX: N30.90 Cystitis, unspecified without hematuria (principal)

== ENCOUNTER → 2021-03-07 | Outpatient (CLI) | payer OTHER ==
[~2021-03-07] MED LIST changes: +ESCI5SOL3 PO; +GABA-282 PO; -PANT40TA29; +PANT40TA29 PO
== END ==
LOC: M LABSMTC 10:38
PROVIDERS: ATTEND Anesthesiology
DX: Z01.818 Encounter for other preprocedural examination (principal); Z11.52 Encounter for screening for COVID-19

== ENCOUNTER → 2021-03-07 | Outpatient (CLI) | payer OTHER ==
--- NOTE | 2021-03-07 12:32 | ECGEPIP ---
[facility] Test Date: 2021-03-07 Pat Name: DANIEL SCHNEIDER Department: Room: - Gender: Female Nurse Case Management: carissa : 1965 Requested By: JAMES Vallecillo Order Number: [id number] Reading MD: Nguyen Sherman Measurements Intervals Winn Rate: 60 P: 36 AL: 162 QRS: 5 QRSD: 80 T: 32 QT: 430 QTc: 430 Interpretive Statements Normal sinus rhyth LOW VOLT PRECORDIAL LEAD PRIOR WITH SINUS IKE 02/24/19 Electronically Signed on 03-07-2021 12:32:31 EST by Nguyen Sherman
== END ==
LOC: M EKG 11:39
PROVIDERS: ATTEND Anesthesiology
DX: Z01.810 Encounter for preprocedural cardiovascular examination (principal)

== ENCOUNTER → 2021-03-07 | Outpatient (CLI) | payer OTHER ==
[2021-03-07 12:31] LABS: BASO # 0.1 10^3/uL (0.0-0.2); BASO % 0.8 % (0.0-1.0); EOS # 0.1 10^3/uL (0.0-0.5); EOS % 1.8 % (0.0-3.0); HEMOGLOBIN 11.7 g/dl (12.0-15.5); LYMPH # 2.6 10^3/uL (1.5-5.0); LYMPH % 42.6 % (24.0-44.0); MEAN CORPUSCULAR HEMOGLOBIN 26.8 pg (27.0-33.0); MEAN CORPUSCULAR HGB CONC 30.8 g/dl (32.0-36.5); MEAN CORPUSCULAR VOLUME 87.2 fl (80.0-96.0); MONO # 0.4 10^3/uL (0.0-0.8); MONO % 5.8 % (2.0-8.0); NEUTROPHILS % 48.7 % (36.0-66.0); PLATELET COUNT, AUTOMATED 233 10^3/uL (150-450); RED BLOOD COUNT 4.36 10^6/uL (4.00-5.40); WHITE BLOOD COUNT 6.2 10^3/uL (4.0-10.0)
[2021-03-07 12:55] LABS: ALBUMIN 3.6 GM/DL (3.2-5.2); ALT/SGPT 39 U/L (12-78); BILIRUBIN,TOTAL 0.4 MG/DL (0.2-1.0); BLOOD UREA NITROGEN 8 MG/DL (7-18); C REACTIVE PROTEIN QUANTITATIV 1.25 MG/DL (0.00-0.30); CARBON DIOXIDE LEVEL 26 MEQ/L (21-32); CHLORIDE LEVEL 106 MEQ/L (98-107); CHOLESTEROL LEVEL 218 MG/DL (< 200); CPK CREATINE PHOSPHOKINASE 38 U/L (26-192); CREATININE FOR GFR 0.82 MG/DL (0.55-1.30); GLOMERULAR FILTRATION RATE > 60.0 (>51); GLUCOSE, FASTING 132 MG/DL (70-100); LDH LACTATE DEHYDROGENASE 160 U/L (84-246); PHOSPHORUS LEVEL 3.1 MG/DL (2.5-4.9); POTASSIUM SERUM 3.9 MEQ/L (3.5-5.1); RHEUMATOID FACTOR QUANT < 10.0 IU/ML (<15.0); SODIUM LEVEL 138 MEQ/L (136-145); TOTAL PROTEIN 7.7 GM/DL (6.4-8.2); TRIGLYCERIDES LEVEL 173 MG/DL (<150)
[2021-03-07 13:15] LABS: HEMOGLOBIN A1c 5.7 %
== END ==
LOC: M LAB 11:46
PROVIDERS: ATTEND Family Medicine
DX: Z12.39 Encounter for other screening for malignant neoplasm of breast (principal); I10 Essential (primary) hypertension; E66.01 Morbid (severe) obesity due to excess calories; M25.551 Pain in right hip

== ENCOUNTER 2021-03-12 10:21 | Day surgery (SDC) | payer OTHER ==
[~2021-03-12] VITALS: Ht 157.5 cm; Wt 103.4 kg
[~2021-03-12 10:21] MED LIST changes: +LR 1,000 ML IV ONE
[2021-03-12] MEDS ORDERED: LIDOCAINE 1% MDV 20ML VIAL As Ordered ONE ×2 (10:58→12:17)
[2021-03-12] MEDS ORDERED: LIDOCAINE 2% 100MG/5ML SDV (FOR ANES.) As Ordered ONE (11:31)
[2021-03-12] MEDS ORDERED: fentaNYL 100 MCG/2 ML INJECTION (J3010) As Ordered ONE (11:31)
[2021-03-12] MEDS ORDERED: MIDAZOLAM INJ 2MG/2ML VIAL (J2250 PER 1MG) As Ordered ONE (11:31)
[2021-03-12] MEDS ORDERED: propofoL 200 MG/20 ML VIAL As Ordered ONE (11:31)
[2021-03-12] MEDS ORDERED: ceFAZolin 2 GM/D5W 50 ML IV BAG (J0690 PER 500MG) As Ordered ONE (11:41)
[2021-03-12] MEDS ORDERED: ceFAZolin SOD 2 GM in IV 1 EA IV ONE (11:55)
[2021-03-12] MEDS ORDERED: CEPH500C PO (12:38)
[2021-03-12] MEDS ORDERED: KETOROLAC 60MG 2ML VIAL As Ordered ONE (13:16)
[2021-03-12] MEDS ORDERED: ONDANSETRON 4MG/2ML VIAL As Ordered ONE (13:16)
[2021-03-12 13:40] VITALS: BP 158/84
--- NOTE | 2021-03-12 14:08 | ROOPDOC ---
[facility] Report Of Operation Report of Operation DATE OF PROCEDURE: 03/12/21 PREPROCEDURE DIAGNOSES: [Refractory overactive bladder causing diminished quality of life]. POSTPROCEDURE DIAGNOSES: [Same]. PROCEDURE PERFORMED: [InterStim bilateral peripheral nerve evaluation (pne)]. SURGEON: [Woodrow Elizalde, ASSISTANT KITCHEN MANAGER: [None], ANESTHESIA: [MAC and local]. ESTIMATED BLOOD LOSS: Approximately [drops] mL. COMPLICATIONS: [None]. REMARKS: [55-year-old white female. Refractory overactive bladder. Frequency, urgency, nocturia and urge incontinence. Quality of life diminished. Wears a pad and changes it frequently. Has tried multiple medications. Currently on oxybutynin extended release. Patient and Dr. Gil discussed available options. A decision was made to proceed with InterStim. I was asked to do the surgery because Dr. Gil was unavailable. I agreed as did the patient. Informed consent obtained. Risks discussed such as infection, bleeding, pain, scarring, injury to nerve, failure of procedure to help, risks of anesthesia and others.]. FINDINGS: SPECIMENS REMOVED: [None] PROCEDURE NOTE: . DESCRIPTION OF PROCEDURE: [I met with patient in the preop area and again discussed surgery. Patient wished to proceed. Patient brought to the OR room. Prone positioning. Much care was taken in positioning. Well-padded. MAC anesthesia was used. Prepped and draped in usual sterile fashion. Timeout performed. Surgery done under coverage of IV Ancef. Fluoroscopy was used to identify landmarks. Needle entry points determined and marked. Right side done first. Needle entry point infiltrated with 1% lidocaine. Deeper tissue infiltrated as well. The InterStim needle was then used to access the S3 fo ramen. At first the needle was determined to be in S4 after testing for the appropriate responses. With that needle still in place, another needle was used. The S3 foramen was accessed as determined by testing. After this, the first needle was removed. Attention was then directed to the left side. The same procedure was done. The S3 foramen was accessed as determined by testing. Fluoroscopy was used intermittently. I interpreted the images as I went along. With the needles in their proper location, the leads were placed. Fluoroscopy demonstrated excellent lead placement. The needles were then removed leaving the leads in place. The field was cleaned and dried. The leads were coiled and then covered with sterile gauze followed by several waterproof dressings. Left side was up and right side was down. This ended surgery. Patient tolerated everything well left the room in satisfactory condition. Home today with Keflex. Follow-up next week.]. JOSE ANGEL ELIZALDE MD Mar 12, 2021 14:08
== END 2021-03-12 13:48 | disposition home or self-care (01) ==
LOC: M SDC 10:21
PROVIDERS: ATTEND Urology
DX: N32.81 Overactive bladder (principal); I10 Essential (primary) hypertension; Z79.899 Other long term (current) drug therapy; E11.9 Type 2 diabetes mellitus without complications; E78.5 Hyperlipidemia, unspecified; K21.9 Gastro-esophageal reflux disease without esophagitis; Z79.84 Long term (current) use of oral hypoglycemic drugs; N30.90 Cystitis, unspecified without hematuria; Z87.891 Personal history of nicotine dependence
CPT/HCPCS: 64561; 76000; C1778; J0690; J1885; J2250; J2405; J3010

== ENCOUNTER → 2021-03-28 | Outpatient (CLI) | payer OTHER ==
[~2021-03-28] MED LIST changes: +BACT800T5 PO; +CEPH500C PO; +FLUTISP; +HYDR-3713 PO; +LISI5TAB11 PO; -LR 1,000 ML IV ONE; +VITA1CHW8 PO
== END ==
LOC: M LABSMTC 11:32
PROVIDERS: ATTEND Anesthesiology
DX: Z01.818 Encounter for other preprocedural examination (principal); Z11.52 Encounter for screening for COVID-19

== ENCOUNTER 2021-03-29 12:06 | Day surgery (SDC) | payer OTHER ==
[~2021-03-29] VITALS: Ht 157.5 cm; Wt 103.3 kg
[~2021-03-29 12:06] MED LIST changes: -BACT800T5 PO; -FLUTISP; -HYDR-3713 PO; +LIDOCAINE 1% MDV 20ML VIAL SQ PRN; -LISI5TAB11 PO; +LR 1,000 ML IV ONE; -VITA1CHW8 PO; +ceFAZolin SOD 2 GM in IV 1 EA IV ONE
[2021-03-29] MEDS ORDERED: LIDOCAINE 2% 100MG/5ML SDV (FOR ANES.) As Ordered ONE (12:17)
[2021-03-29] MEDS ORDERED: propofoL 200 MG/20 ML VIAL As Ordered ONE ×2 (12:18→14:09)
[2021-03-29] MEDS ORDERED: MIDAZOLAM INJ 2MG/2ML VIAL (J2250 PER 1MG) As Ordered ONE (12:19)
[2021-03-29] MEDS ORDERED: fentaNYL 100 MCG/2 ML INJECTION (J3010) As Ordered ONE (12:19)
[2021-03-29] MEDS ORDERED: LIDOCAINE 1% SDV 30ML VIAL As Ordered ONE ×2 (13:12→14:06)
[2021-03-29] MEDS ORDERED: ONDANSETRON 4MG/2ML VIAL As Ordered ONE (14:09)
[2021-03-29] MEDS ORDERED: ACETAMINOPHEN 1000MG 100ML IV BTL (OFIRMEV) (J0131 PER 10MG) As Ordered ONE (14:11)
[2021-03-29] MEDS ORDERED: BACT800T5 PO (14:58)
[2021-03-29] MEDS ORDERED: HYDR-3713 PO (14:58)
--- NOTE | 2021-03-29 15:01 | ROOPDOC ---
[facility] Report Of Operation Report of Operation DATE OF PROCEDURE: 03/29/21 PREPROCEDURE DIAGNOSES: [Overactive bladder]. POSTPROCEDURE DIAGNOSES: [Same]. PROCEDURE PERFORMED: [Interstim placement (permanent, right side, attempted left side initially), fluoroscopy]. SURGEON: [Woodrow Elizalde, NUT PACKER: [None], ANESTHESIA: [MAC and local]. ESTIMATED BLOOD LOSS: Approximately [10] mL. COMPLICATIONS: [None]. REMARKS: [55-year-old white female. Refractory overactive bladder. Successful PNE. InterStim placement arranged. No guarantees given. Risks discussed such as infection, bleeding, pain, scarring, failure of procedure, persistent overactive bladder symptoms, nerve injury and others.]. FINDINGS: SPECIMENS REMOVED: [None] PROCEDURE NOTE: . DESCRIPTION OF PROCEDURE: [I met with the patient in the preop area and again di scussed surgery. Questions answered. Patient wished to proceed. We decided left side if possible and nonrechargeable battery. Patient brought to the OR room. Surgery was done under coverage of IV Ancef. Positioning was prone. Much care was taken in positioning. Well-padded. MAC anesthesia was used. Prepped and draped in usual sterile fashion. Timeout performed. Landmarks were identified using fluoroscopy. Midline marked. Bottom of sacroiliac joints marked. Level of S3 foramen marked. Local was used to infiltrate the skin and deeper tissues. The S3 foramen was located with the needle. Such was done under fluoroscopic guidance. AP and lateral views. Testing was performed with the needle in place. Appropriate neurologic responses were noted. Patient was able to communicate. The needle was exchanged for the wire. A small incision was made at the skin entry point. Over the wire was passed the trocar. Again, all was done under fluoroscopic guidance. With the trocar sheath in place, the tined lead was inserted. Proper positioning was confirmed using fluoroscopy and testing. The sheath and the wire within the lead were removed. Some fluoroscopic images were saved. The location for the generator was chosen. Again local was used to infiltrate the skin and deeper tissues. A pocket was created. Hemostasis was secured. Sterile water was used to irrigate the pocket before and after placement of the generator. With the pocket created, the lead was attached to the generator after which the generator was placed in the pocket. Before connecting the lead to the generator, the lead was tunneled to the site. With the generator in place testing was again performed. Things seem to be in order. 3-0 Vicryl followed by 4-0 Monocryl were used to close the pocket incision. The smaller incision was closed in a similar fashion. The surgical field was cleaned and dried. Dressings were placed. Patient tolerated everything well left the room in satisfactory condition. Home today with Bactrim and pain medication. I talked with the patient's .]. JOSE ANGEL ELIZALDE MD Mar 29, 2021 15:01
[2021-03-29 16:23] VITALS: BP 136/66
--- NOTE | 2021-04-02 14:24 | REP ---
INDICATION: URINARY INCONTINENCE. COMPARISON: None. TECHNIQUE: Three C-arm views pelvis. FINDINGS: A radiopaque lead is seen with the tip in the pelvis. IMPRESSION: 7 seconds fluoroscopy time utilized. <Electronically signed by Jeremy Quintanilla > 04/02/21 [id number]
== END 2021-03-29 16:30 | disposition home or self-care (01) ==
LOC: M SDC 12:06
PROVIDERS: ATTEND Urology
DX: N32.81 Overactive bladder (principal); R32 Unspecified urinary incontinence; E11.9 Type 2 diabetes mellitus without complications; I10 Essential (primary) hypertension; K21.9 Gastro-esophageal reflux disease without esophagitis; F41.9 Anxiety disorder, unspecified; E66.9 Obesity, unspecified; Z79.84 Long term (current) use of oral hypoglycemic drugs; Z79.899 Other long term (current) drug therapy
CPT/HCPCS: 64581; 64590; 76000; C1767; C1897; J0131; J0690; J2250; J2405; J3010

== ENCOUNTER → 2021-04-09 | Outpatient (REF) | payer OTHER ==
[~2021-04-09] MED LIST changes: +BACT800T5 PO; +FLUTISP; +HYDR-3713 PO; -LIDOCAINE 1% MDV 20ML VIAL SQ PRN; +LISI5TAB11 PO; -LR 1,000 ML IV ONE; +VITA1CHW8 PO; -ceFAZolin SOD 2 GM in IV 1 EA IV ONE
[2021-04-09 14:45] LABS: APPEARANCE, URINE CLEAR (CLEAR); BACTERIA, URINE AUTO NEGATIVE (NEGATIVE); BILIRUBIN, URINE AUTO NEGATIVE (NEGATIVE); BLOOD, URINE BLOOD NEGATIVE (NEGATIVE); COLOR, URINE AMBER (YELLOW); GLUCOSE, URINE (UA) AUTO NEGATIVE (NEGATIVE); KETONE, URINE AUTO NEGATIVE (NEGATIVE); LEUKOCYTE ESTERASE, URINE AUTO NEGATIVE (NEGATIVE); MUCUS, URINE SMALL (NEGATIVE); NITRITE, URINE AUTO POSITIVE (NEGATIVE); PROTEIN, URINE AUTO NEGATIVE (NEGATIVE); RBC, URINE AUTO 0 /HPF (0-3); SPECIFIC GRAVITY URINE AUTO 1.005 (1.002-1.035); SQUAMOUS EPITHELIAL CELL UR AU 1 /HPF (0-6); WBC, URINE AUTO 1 /HPF (0-3)
== END ==
LOC: M SMT 13:21
PROVIDERS: ATTEND Nurse Practitioner Women's Health
DX: R32 Unspecified urinary incontinence (principal)

== ENCOUNTER → 2021-06-06 | Outpatient (CLI) | payer OTHER ==
[2021-06-06 13:13] LABS: HEMATOCRIT 36.4 % (36.0-47.0); HEMOGLOBIN 11.5 g/dl (12.0-15.5); MEAN CORPUSCULAR HEMOGLOBIN 27.1 pg (27.0-33.0); MEAN CORPUSCULAR HGB CONC 31.6 g/dl (32.0-36.5); MEAN CORPUSCULAR VOLUME 85.8 fl (80.0-96.0); PLATELET COUNT, AUTOMATED 254 10^3/uL (150-450); RED BLOOD COUNT 4.24 10^6/uL (4.00-5.40); WHITE BLOOD COUNT 6.3 10^3/uL (4.0-10.0)
[2021-06-06 13:45] LABS: ALBUMIN 3.6 GM/DL (3.2-5.2); ALT/SGPT 45 U/L (12-78); BILIRUBIN,TOTAL 0.3 MG/DL (0.2-1.0); BLOOD UREA NITROGEN 11 MG/DL (7-18); CALCIUM LEVEL 9.5 MG/DL (8.5-10.1); CARBON DIOXIDE LEVEL 27 MEQ/L (21-32); CHLORIDE LEVEL 107 MEQ/L (98-107); CREATININE FOR GFR 0.68 MG/DL (0.55-1.30); GLOMERULAR FILTRATION RATE > 60.0 (>51); GLUCOSE, FASTING 91 MG/DL (70-100); POTASSIUM SERUM 4.6 MEQ/L (3.5-5.1); SODIUM LEVEL 141 MEQ/L (136-145); TOTAL PROTEIN 7.7 GM/DL (6.4-8.2)
== END ==
LOC: M PLALAB 10:30
PROVIDERS: ATTEND Urology
DX: N32.81 Overactive bladder (principal)

== ENCOUNTER → 2021-06-06 | Outpatient (CLI) | payer OTHER ==
[~2021-06-06] MED LIST changes: -FLUTISP; -LISI5TAB11 PO; -VITA1CHW8 PO
== END ==
LOC: M LABSMTC 10:12
PROVIDERS: ATTEND Anesthesiology
DX: Z01.812 Encounter for preprocedural laboratory examination (principal); Z20.822 Contact with and (suspected) exposure to COVID-19

== ENCOUNTER 2021-06-11 13:51 | Day surgery (SDC) | payer OTHER ==
[~2021-06-11] VITALS: Ht 157.5 cm; Wt 102.5 kg
[~2021-06-11 13:51] MED LIST changes: +EMLA CREAM 5GM TUBE (LIDOCAINE/PRILOCAINE) TOP PRN; +FLUTISP; +LIDOCAINE 1% MDV 20ML VIAL SQ PRN; +LISI5TAB11 PO; +LR 1,000 ML IV ONE; +VITA1CHW8 PO; +ceFAZolin SOD 2 GM in IV 1 EA IV ONE
[2021-06-11] MEDS ORDERED: MIDAZOLAM INJ 2MG/2ML VIAL (J2250 PER 1MG) As Ordered ONE (14:34)
[2021-06-11] MEDS ORDERED: propofoL 200 MG/20 ML VIAL As Ordered ONE (14:35)
[2021-06-11] MEDS ORDERED: fentaNYL 100 MCG/2 ML INJECTION As Ordered ONE (14:35)
[2021-06-11] MEDS ORDERED: LIDOCAINE 2% 100MG/5ML SDV (FOR ANES.) As Ordered ONE (14:36)
[2021-06-11] MEDS ORDERED: propofoL 500 MG/50 ML VIAL As Ordered ONE (14:39)
[2021-06-11] MEDS ORDERED: LIDOCAINE 1% MDV 20ML VIAL As Ordered ONE (15:08)
[2021-06-11] MEDS ORDERED: LIDOCAINE 1% SDV 30ML VIAL As Ordered ONE ×2 (15:08→15:52)
[2021-06-11] MEDS ORDERED: HYDR-3713 PO (16:59)
[2021-06-11] MEDS ORDERED: METOCLOPRAMIDE INJ 10MG/2ML VIAL (J2765 PER 1) IV PRN (17:20)
[2021-06-11] MEDS ORDERED: ONDANSETRON 4MG/2ML VIAL IV PRN (17:20)
[2021-06-11] MEDS ORDERED: PERCOCET 5MG/325MG TAB PO PRN (17:20)
[2021-06-11] MEDS ORDERED: LR 1,000 ML IV SCH (17:20)
[2021-06-11 17:51] VITALS: BP 147/66
== END 2021-06-11 17:51 | disposition home or self-care (01) ==
LOC: M SDC 13:51
PROVIDERS: ATTEND Urology
DX: N39.41 Urge incontinence (principal); N39.3 Stress incontinence (female) (male); I10 Essential (primary) hypertension; E11.9 Type 2 diabetes mellitus without complications; E78.5 Hyperlipidemia, unspecified; Z79.84 Long term (current) use of oral hypoglycemic drugs; Z79.899 Other long term (current) drug therapy
CPT/HCPCS: 64585; 64590; 76000; C1897; J0690; J2250; J3010

== ENCOUNTER → 2021-07-10 | Outpatient (REF) | payer OTHER ==
[~2021-07-10] MED LIST changes: -EMLA CREAM 5GM TUBE (LIDOCAINE/PRILOCAINE) TOP PRN; -LIDOCAINE 1% MDV 20ML VIAL SQ PRN; -LR 1,000 ML IV ONE; -ceFAZolin SOD 2 GM in IV 1 EA IV ONE
[2021-07-10 18:20] LABS: APPEARANCE, URINE MANUAL HAZY (CLEAR); BILIRUBIN, URINE MANUAL OBSCURED (NEGATIVE); BLOOD URINE MANUAL OBSCURED (NEGATIVE); COLOR, URINE MANUAL ORANGE (YELLOW); GLUCOSE, URINE (UA) MANUAL OBSCURED mg/dL (NEGATIVE); KETONE, URINE MANUAL OBSCURED mg/dL (NEGATIVE); LEUKOCYTE ESTERASE, URINE MAN OBSCURED (NEGATIVE); NITRITE, URINE MANUAL OBSCURED (NEGATIVE); PH,URINE MAN OBSCURED UNITS (5.0 - 7.0); PROTEIN, URINE MANUAL OBSCURED mg/dL (NEGATIVE); SPECIFIC GRAVITY,URINE MANUAL 1.007 (1.002-1.035); UROBILINOGEN, URINE MANUAL OBSCURED mg/dl (NORMAL)
[2021-07-10 21:16] LABS: RBC, URINE NONE SEEN /hpf (0-3); WBC, URINE TNTC /hpf (0-3)
[2021-07-10 21:18] LABS: BACTERIA, URINE SMALL AMOUNT; RENAL EPITHELIAL CELLS, URINE SMALL AMOUNT /hpf; SQUAMOUS EPITHELIAL CELL URINE MOD AMOUNT /hpf (SMALL AMT); TRANSITIONAL EPI CELLS, URINE SMALL AMOUNT /hpf
[2021-07-10 21:19] LABS: HYALINE CAST, URINE NONE SEEN /lpf (0-1)
== END ==
LOC: M SMT 16:45
PROVIDERS: ATTEND Urology
DX: N39.0 Urinary tract infection, site not specified (principal)

== ENCOUNTER → 2021-07-19 | Outpatient (CLI) | payer OTHER ==
[2021-07-19 13:15] LABS: HEMATOCRIT 36.3 % (36.0-47.0); HEMOGLOBIN 11.3 g/dl (12.0-15.5); MEAN CORPUSCULAR HEMOGLOBIN 26.2 pg (27.0-33.0); MEAN CORPUSCULAR HGB CONC 31.1 g/dl (32.0-36.5); MEAN CORPUSCULAR VOLUME 84.2 fl (80.0-96.0); PLATELET COUNT, AUTOMATED 241 10^3/uL (150-450); RED BLOOD COUNT 4.31 10^6/uL (4.00-5.40); WHITE BLOOD COUNT 5.2 10^3/uL (4.0-10.0)
[2021-07-19 13:40] LABS: BLOOD UREA NITROGEN 12 MG/DL (7-18); CALCIUM LEVEL 9.7 MG/DL (8.5-10.1); CARBON DIOXIDE LEVEL 28 MEQ/L (21-32); CHLORIDE LEVEL 106 MEQ/L (98-107); CREATININE FOR GFR 0.67 MG/DL (0.55-1.30); GLOMERULAR FILTRATION RATE > 60.0 (>51); GLUCOSE, FASTING 99 MG/DL (70-100); POTASSIUM SERUM 4.3 MEQ/L (3.5-5.1); SODIUM LEVEL 138 MEQ/L (136-145)
== END ==
LOC: M PLALAB 10:38
PROVIDERS: ATTEND Specialist
DX: N30.90 Cystitis, unspecified without hematuria (principal)

== ENCOUNTER → 2021-07-20 | Outpatient (CLI) | payer OTHER | LOC: M LABSMTC 09:55 | PROVIDERS: ATTEND Anesthesiology | DX: Z01.812 Encounter for preprocedural laboratory examination (principal); Z20.822 Contact with and (suspected) exposure to COVID-19 ==

== ENCOUNTER 2021-07-23 11:03 | Day surgery (SDC) | payer OTHER ==
[~2021-07-23] VITALS: Ht 157.5 cm; Wt 105.0 kg
[2021-07-23] MEDS ORDERED: dexameTHASONE 4 MG/ML 1ML VIAL (J1100 PER 1MG) As Ordered ONE (11:55)
[2021-07-23] MEDS ORDERED: MIDAZOLAM INJ 2MG/2ML VIAL (J2250 PER 1MG) As Ordered ONE (11:55)
[2021-07-23] MEDS ORDERED: ONDANSETRON 4MG/2ML VIAL As Ordered ONE (11:55)
[2021-07-23] MEDS ORDERED: fentaNYL 100 MCG/2 ML INJECTION As Ordered ONE (11:55)
[2021-07-23] MEDS ORDERED: propofoL 200 MG/20 ML VIAL As Ordered ONE (11:55)
[2021-07-23] MEDS ORDERED: LIDOCAINE 2% 100MG/5ML SDV (FOR ANES.) As Ordered ONE (11:55)
[2021-07-23] MEDS ORDERED: ROCURONIUM BROMIDE 50 MG/5 ML VIAL As Ordered ONE (14:30)
[2021-07-23] MEDS ORDERED: ceFAZolin 2 GM/D5W 50 ML IV BAG (J0690 PER 500MG) As Ordered ONE (15:07)
[2021-07-23] MEDS ORDERED: ACETAMINOPHEN 1000MG 100ML IV BTL (OFIRMEV) (J0131 PER 10MG) As Ordered ONE (15:22)
[2021-07-23] MEDS ORDERED: LIDOCAINE 2% 5ML JELLY UROJET As Ordered ONE (15:46)
[2021-07-23] MEDS ORDERED: LIDOCAINE 1% MDV 50ML VIAL As Ordered ONE (15:47)
[2021-07-23] MEDS ORDERED: SUGAMMADEX SODIUM 500 MG/5 ML VIAL (BRIDION) As Ordered ONE (15:51)
[2021-07-23] MEDS ORDERED: HYDROMORPHONE HCL 0.5 MG/ 0.5 ML SYRINGE (J1170 PER 1) IV PRN (16:20)
[2021-07-23] MEDS ORDERED: LR 1,000 ML IV SCH (16:20)
[2021-07-23] MEDS ORDERED: oxyCODONE 5MG TAB PO PRN (16:20)
[2021-07-23] MEDS ORDERED: fentaNYL 100 MCG/2 ML INJECTION IV PRN (16:20)
[2021-07-23] MEDS ORDERED: ONDANSETRON 4MG/2ML VIAL IV PRN (16:20)
[2021-07-23 17:30] VITALS: BP 128/82
== END 2021-07-23 17:33 | disposition home or self-care (01) ==
LOC: M SDC 11:03
PROVIDERS: ATTEND Specialist
DX: N30.90 Cystitis, unspecified without hematuria (principal); I10 Essential (primary) hypertension; E11.9 Type 2 diabetes mellitus without complications; R32 Unspecified urinary incontinence; R30.0 Dysuria; K21.9 Gastro-esophageal reflux disease without esophagitis; Z79.899 Other long term (current) drug therapy; Z79.84 Long term (current) use of oral hypoglycemic drugs; F41.9 Anxiety disorder, unspecified; E78.5 Hyperlipidemia, unspecified; Z87.891 Personal history of nicotine dependence
CPT/HCPCS: 52234; 88305; J0131; J0690; J1100; J2250; J2405; J3010

== ENCOUNTER → 2021-07-31 | Outpatient (REF) | payer OTHER ==
[2021-07-31 17:53] LABS: APPEARANCE, URINE HAZY (CLEAR); BACTERIA, URINE AUTO 2+ (NEGATIVE); BILIRUBIN, URINE AUTO NEGATIVE (NEGATIVE); BLOOD, URINE BLOOD 3+ (NEGATIVE); COLOR, URINE AMBER (YELLOW); GLUCOSE, URINE (UA) AUTO NEGATIVE (NEGATIVE); KETONE, URINE AUTO TRACE mg/dL (NEGATIVE); LEUKOCYTE ESTERASE, URINE AUTO 2+ (NEGATIVE); MUCUS, URINE SMALL (NEGATIVE); NITRITE, URINE AUTO POSITIVE (NEGATIVE); PROTEIN, URINE AUTO 2+ mg/dL (NEGATIVE); RBC, URINE AUTO TNTC /HPF (0-3); SPECIFIC GRAVITY URINE AUTO 1.017 (1.002-1.035); SQUAMOUS EPITHELIAL CELL UR AU 1 /HPF (0-6); WBC, URINE AUTO 152 /HPF (0-3)
== END ==
LOC: M SMT 17:06
PROVIDERS: ATTEND Specialist
DX: R30.0 Dysuria (principal)

== ENCOUNTER → 2021-08-06 | Outpatient (REF) | payer OTHER ==
[2021-08-06 18:02] LABS: APPEARANCE, URINE CLEAR (CLEAR); BACTERIA, URINE AUTO NEGATIVE (NEGATIVE); BILIRUBIN, URINE AUTO NEGATIVE (NEGATIVE); BLOOD, URINE BLOOD 2+ (NEGATIVE); COLOR, URINE AMBER (YELLOW); GLUCOSE, URINE (UA) AUTO NEGATIVE (NEGATIVE); KETONE, URINE AUTO NEGATIVE (NEGATIVE); LEUKOCYTE ESTERASE, URINE AUTO 1+ (NEGATIVE); NITRITE, URINE AUTO POSITIVE (NEGATIVE); PROTEIN, URINE AUTO NEGATIVE (NEGATIVE); RBC, URINE AUTO 29 /HPF (0-3); SPECIFIC GRAVITY URINE AUTO 1.008 (1.002-1.035); SQUAMOUS EPITHELIAL CELL UR AU 1 /HPF (0-6); WBC, URINE AUTO 16 /HPF (0-3)
== END ==
LOC: M SMT 16:35
PROVIDERS: ATTEND Physician Assistant
DX: N39.0 Urinary tract infection, site not specified (principal)

== ENCOUNTER → 2021-12-19 | Outpatient (CLI) | payer OTHER ==
[~2021-12-19] MED LIST changes: +OXYB10TA23 PO
== END ==
LOC: M LABSMTC 11:05
PROVIDERS: ATTEND Anesthesiology
DX: Z01.818 Encounter for other preprocedural examination (principal); Z11.52 Encounter for screening for COVID-19

== ENCOUNTER → 2021-12-19 | Outpatient (CLI) | payer OTHER ==
[2021-12-19 12:49] LABS: HEMATOCRIT 35.7 % (36.0-47.0); HEMOGLOBIN 11.4 g/dl (12.0-15.5); MEAN CORPUSCULAR HEMOGLOBIN 27.1 pg (27.0-33.0); MEAN CORPUSCULAR HGB CONC 31.9 g/dl (32.0-36.5); MEAN CORPUSCULAR VOLUME 84.8 fl (80.0-96.0); PLATELET COUNT, AUTOMATED 242 10^3/uL (150-450); RED BLOOD COUNT 4.21 10^6/uL (4.00-5.40); WHITE BLOOD COUNT 5.4 10^3/uL (4.0-10.0)
[2021-12-19 14:17] LABS: ALBUMIN 3.8 GM/DL (3.2-5.2); ALT/SGPT 30 U/L (12-78); BILIRUBIN,TOTAL 0.2 MG/DL (0.2-1.0); BLOOD UREA NITROGEN 14 MG/DL (7-18); CALCIUM LEVEL 8.9 MG/DL (8.5-10.1); CARBON DIOXIDE LEVEL 26 MEQ/L (21-32); CHLORIDE LEVEL 106 MEQ/L (98-107); CREATININE FOR GFR 0.63 MG/DL (0.55-1.30); GLOMERULAR FILTRATION RATE > 60.0 (>51); GLUCOSE, FASTING 103 MG/DL (70-100); POTASSIUM SERUM 4.3 MEQ/L (3.5-5.1); SODIUM LEVEL 138 MEQ/L (136-145); TOTAL PROTEIN 7.7 GM/DL (6.4-8.2)
== END ==
LOC: M LAB 11:37
PROVIDERS: ATTEND Urology
DX: N39.41 Urge incontinence (principal)

== ENCOUNTER → 2021-12-21 | Outpatient (CLI) | payer OTHER ==
[2021-12-21 18:38] LABS: HEMOGLOBIN A1c 5.9 %
[2021-12-21 18:52] LABS: ALBUMIN 3.7 GM/DL (3.2-5.2); ALT/SGPT 30 U/L (12-78); BILIRUBIN,TOTAL 0.3 MG/DL (0.2-1.0); BLOOD UREA NITROGEN 11 MG/DL (7-18); CALCIUM LEVEL 9.2 MG/DL (8.5-10.1); CARBON DIOXIDE LEVEL 25 MEQ/L (21-32); CHLORIDE LEVEL 105 MEQ/L (98-107); CHOLESTEROL LEVEL 198 MG/DL (<200); CHOLESTEROL RISK RATIO 3.735 (<5); CREATININE FOR GFR 0.65 MG/DL (0.55-1.30); GLOMERULAR FILTRATION RATE > 60.0 (>51); GLUCOSE, FASTING 101 MG/DL (70-100); HDL CHOLESTEROL 53 MG/DL (>40); LDL CHOLESTEROL 123 MG/DL (<100); NON-HDL-C 145 MG/DL; POTASSIUM SERUM 3.9 MEQ/L (3.5-5.1); SODIUM LEVEL 137 MEQ/L (136-145); TOTAL PROTEIN 7.6 GM/DL (6.4-8.2); TRIGLYCERIDES LEVEL 108 MG/DL (<150)
[2021-12-21 18:52] LABS: CREATININE, URINE 50.5 MG/DL; MALB URINE SIEMENS < 5.0 MG/L; MAU/CREAT RATIO 9.9 MCG/MG (0.0-30.0)
== END ==
LOC: M LAB 17:08
PROVIDERS: ATTEND Family Medicine
DX: Z00.00 Encounter for general adult medical examination without abnormal findings (principal); N30.90 Cystitis, unspecified without hematuria; E11.9 Type 2 diabetes mellitus without complications; I10 Essential (primary) hypertension; E78.1 Pure hyperglyceridemia; E66.01 Morbid (severe) obesity due to excess calories

== ENCOUNTER → 2021-12-21 | Outpatient (CLI) | payer OTHER | LOC: M RAD 17:03 | PROVIDERS: ATTEND Urology | DX: N39.41 Urge incontinence (principal) ==

== ENCOUNTER 2021-12-24 07:19 | Day surgery (SDC) | payer OTHER ==
[~2021-12-24] VITALS: Ht 157.5 cm; Wt 100.7 kg
[~2021-12-24 07:19] MED LIST changes: +ceFAZolin SOD 2 GM in IV 1 EA IV ONE
[2021-12-24] MEDS ORDERED: LR 1,000 ML IV SCH (07:25)
[2021-12-24] MEDS ORDERED: MIDAZOLAM INJ 2MG/2ML VIAL (J2250 PER 1MG) As Ordered ONE (08:33)
[2021-12-24] MEDS ORDERED: fentaNYL 100 MCG/2 ML INJECTION As Ordered ONE (08:33)
[2021-12-24] MEDS ORDERED: propofoL 200 MG/20 ML VIAL As Ordered ONE (08:35)
[2021-12-24] MEDS ORDERED: LIDOCAINE 2% 100MG/5ML SDV (FOR ANES.) As Ordered ONE (08:36)
[2021-12-24] MEDS ORDERED: BOTOX THERAPEUTIC 100 UNIT VIAL (J0585 PER 1 UNIT) As Ordered ONE (08:38)
[2021-12-24 10:15] VITALS: BP 150/65
== END 2021-12-24 10:20 | disposition home or self-care (01) ==
LOC: M SDC 07:19
PROVIDERS: ATTEND Urology
DX: N32.81 Overactive bladder (principal); I10 Essential (primary) hypertension; E11.9 Type 2 diabetes mellitus without complications; K21.9 Gastro-esophageal reflux disease without esophagitis; F41.9 Anxiety disorder, unspecified; Z79.84 Long term (current) use of oral hypoglycemic drugs; Z79.899 Other long term (current) drug therapy; Z87.891 Personal history of nicotine dependence
CPT/HCPCS: 52287; 87088; 87186; J0585; J0690; J2250; J3010

== ENCOUNTER → 2022-01-18 | Outpatient (REF) | payer OTHER ==
[~2022-01-18] MED LIST changes: -ceFAZolin SOD 2 GM in IV 1 EA IV ONE
[2022-01-18 15:46] LABS: APPEARANCE, URINE MANUAL CLEAR (CLEAR); COLOR, URINE MANUAL YELLOW (YELLOW)
[2022-01-18 15:48] LABS: BILIRUBIN, URINE MANUAL NEGATIVE (NEGATIVE); BLOOD URINE MANUAL TRACE (NEGATIVE); GLUCOSE, URINE (UA) MANUAL NEGATIVE (NEGATIVE); KETONE, URINE MANUAL NEGATIVE (NEGATIVE); LEUKOCYTE ESTERASE, URINE MAN TRACE (NEGATIVE); NITRITE, URINE MANUAL NEGATIVE (NEGATIVE); PH,URINE MAN 6.5 UNITS (5.0 - 7.0); PROTEIN, URINE MANUAL NEGATIVE (NEGATIVE); UROBILINOGEN, URINE MANUAL NORMAL (NORMAL)
[2022-01-18 16:15] LABS: BACTERIA, URINE SMALL AMOUNT; HYALINE CAST, URINE NONE SEEN /lpf (0-1); MUCUS, URINE SMALL AMOUNT (NEGATIVE); RBC, URINE 0-1 /hpf (0-3); SQUAMOUS EPITHELIAL CELL URINE SMALL AMOUNT /hpf (SMALL AMT)
== END ==
LOC: M SMT 15:16
PROVIDERS: ATTEND Urology
DX: N39.0 Urinary tract infection, site not specified (principal)

== ENCOUNTER → 2022-01-22 | Outpatient (CLI) | payer OTHER | LOC: M RAD 10:16 | PROVIDERS: ATTEND Physician Assistant | DX: R10.11 Right upper quadrant pain (principal) ==

== ENCOUNTER → 2022-12-26 | Outpatient (REF) | payer OTHER ==
[~2022-12-26] MED LIST changes: +FLUT50SP17; -FLUTISP; -GABA-283 PO; +GABA-284 PO
[2022-12-26 18:39] LABS: AMORPHOUS SEDIMENT SMALL (NEGATIVE); APPEARANCE, URINE HAZY (CLEAR); BACTERIA, URINE AUTO 1+ (NEGATIVE); BILIRUBIN, URINE AUTO NEGATIVE (NEGATIVE); BLOOD, URINE BLOOD NEGATIVE (NEGATIVE); COLOR, URINE YELLOW (YELLOW); GLUCOSE, URINE (UA) AUTO NEGATIVE (NEGATIVE); KETONE, URINE AUTO NEGATIVE (NEGATIVE); LEUKOCYTE ESTERASE, URINE AUTO 2+ (NEGATIVE); MUCUS, URINE SMALL (NEGATIVE); NITRITE, URINE AUTO NEGATIVE (NEGATIVE); PROTEIN, URINE AUTO NEGATIVE (NEGATIVE); RBC, URINE AUTO 4 /HPF (0-3); SPECIFIC GRAVITY URINE AUTO 1.015 (1.002-1.035); SQUAMOUS EPITHELIAL CELL UR AU 0 /HPF (0-6); UROBILINOGEN, URINE AUTO 0.2 mg/dL (0.0-2.0); WBC, URINE AUTO 74 /HPF (0-3)
== END ==
LOC: M SMT 17:18
PROVIDERS: ATTEND Physician Assistant
DX: R30.0 Dysuria (principal)

== ENCOUNTER → 2023-02-18 | Outpatient (REF) | payer OTHER ==
[2023-02-18 14:07] LABS: APPEARANCE, URINE HAZY (CLEAR); BACTERIA, URINE AUTO 1+ (NEGATIVE); BILIRUBIN, URINE AUTO NEGATIVE (NEGATIVE); BLOOD, URINE BLOOD 2+ (NEGATIVE); COLOR, URINE YELLOW (YELLOW); GLUCOSE, URINE (UA) AUTO NEGATIVE (NEGATIVE); KETONE, URINE AUTO NEGATIVE (NEGATIVE); LEUKOCYTE ESTERASE, URINE AUTO 3+ (NEGATIVE); MUCUS, URINE SMALL (NEGATIVE); NITRITE, URINE AUTO POSITIVE (NEGATIVE); PROTEIN, URINE AUTO 2+ mg/dL (NEGATIVE); RBC, URINE AUTO 20 /HPF (0-3); SQUAMOUS EPITHELIAL CELL UR AU 1 /HPF (0-6); UROBILINOGEN, URINE AUTO 0.2 mg/dL (0.0-2.0); WBC, URINE AUTO 97 /HPF (0-3)
== END ==
LOC: M SMT 13:28
PROVIDERS: ATTEND Urology
DX: R39.9 Unspecified symptoms and signs involving the genitourinary system (principal)

== ENCOUNTER → 2023-02-19 | Outpatient (REF) | payer OTHER ==
[2023-02-19 17:28] LABS: BLOOD UREA NITROGEN 14 MG/DL (9-23); CALCIUM LEVEL 8.6 MG/DL (8.5-10.1); CARBON DIOXIDE LEVEL 29 MMOL/L (20-31); CHLORIDE LEVEL 99 MMOL/L (98-107); CREATININE FOR GFR 0.69 MG/DL (0.55-1.30); GLOMERULAR FILTRATION RATE > 60.0 (>51); GLUCOSE, FASTING 120 MG/DL (60-100); POTASSIUM SERUM 4.2 MMOL/L (3.5-5.1); SODIUM LEVEL 136 MMOL/L (136-145)
[2023-02-19 18:21] LABS: HEMOGLOBIN A1c 5.6 % (4.0-6.0)
== END ==
LOC: M WUC 16:15
PROVIDERS: ATTEND Family Medicine
DX: E11.9 Type 2 diabetes mellitus without complications (principal)

== ENCOUNTER → 2023-04-16 | Outpatient (REF) | payer OTHER ==
[~2023-04-16] MED LIST changes: -FLUT50SP17; +FLUTISP
[2023-04-16 18:18] LABS: APPEARANCE, URINE CLEAR (CLEAR); BACTERIA, URINE AUTO NEGATIVE (NEGATIVE); BILIRUBIN, URINE AUTO NEGATIVE (NEGATIVE); BLOOD, URINE BLOOD NEGATIVE (NEGATIVE); COLOR, URINE YELLOW (YELLOW); GLUCOSE, URINE (UA) AUTO NEGATIVE (NEGATIVE); KETONE, URINE AUTO NEGATIVE (NEGATIVE); LEUKOCYTE ESTERASE, URINE AUTO 1+ (NEGATIVE); NITRITE, URINE AUTO NEGATIVE (NEGATIVE); PROTEIN, URINE AUTO NEGATIVE (NEGATIVE); RBC, URINE AUTO 0 /HPF (0-3); SQUAMOUS EPITHELIAL CELL UR AU 0 /HPF (0-6); UROBILINOGEN, URINE AUTO 0.2 mg/dL (0.0-2.0); WBC, URINE AUTO 0 /HPF (0-3)
== END ==
LOC: M SMT 17:08
PROVIDERS: ATTEND Physician Assistant
DX: R30.0 Dysuria (principal)

== ENCOUNTER → 2023-06-23 | Outpatient (REF) | payer OTHER ==
[2023-06-23 13:41] LABS: APPEARANCE, URINE CLEAR (CLEAR); BACTERIA, URINE AUTO 1+ (NEGATIVE); BILIRUBIN, URINE AUTO NEGATIVE (NEGATIVE); BLOOD, URINE BLOOD NEGATIVE (NEGATIVE); COLOR, URINE YELLOW (YELLOW); GLUCOSE, URINE (UA) AUTO NEGATIVE (NEGATIVE); KETONE, URINE AUTO NEGATIVE (NEGATIVE); LEUKOCYTE ESTERASE, URINE AUTO TRACE (NEGATIVE); MUCUS, URINE SMALL (NEGATIVE); NITRITE, URINE AUTO POSITIVE (NEGATIVE); PROTEIN, URINE AUTO NEGATIVE (NEGATIVE); RBC, URINE AUTO 0 /HPF (0-3); SPECIFIC GRAVITY URINE AUTO 1.015 (1.002-1.035); SQUAMOUS EPITHELIAL CELL UR AU 2 /HPF (0-6); UROBILINOGEN, URINE AUTO 0.2 mg/dL (0.0-2.0); WBC, URINE AUTO 2 /HPF (0-3)
== END ==
LOC: M SMT 13:09
PROVIDERS: ATTEND Physician Assistant
DX: R30.0 Dysuria (principal)

== ENCOUNTER → 2023-07-09 | Outpatient (REF) | payer OTHER ==
[2023-07-09 17:45] LABS: APPEARANCE, URINE HAZY (CLEAR); BACTERIA, URINE AUTO 2+ (NEGATIVE); BILIRUBIN, URINE AUTO NEGATIVE (NEGATIVE); BLOOD, URINE BLOOD NEGATIVE (NEGATIVE); COLOR, URINE YELLOW (YELLOW); GLUCOSE, URINE (UA) AUTO NEGATIVE (NEGATIVE); KETONE, URINE AUTO NEGATIVE (NEGATIVE); LEUKOCYTE ESTERASE, URINE AUTO 3+ (NEGATIVE); NITRITE, URINE AUTO POSITIVE (NEGATIVE); PROTEIN, URINE AUTO NEGATIVE (NEGATIVE); RBC, URINE AUTO 0 /HPF (0-3); SPECIFIC GRAVITY URINE AUTO 1.017 (1.002-1.035); SQUAMOUS EPITHELIAL CELL UR AU 0 /HPF (0-6); UROBILINOGEN, URINE AUTO 0.2 mg/dL (0.0-2.0); WBC, URINE AUTO 44 /HPF (0-3)
== END ==
LOC: M SMT 17:15
PROVIDERS: ATTEND Urology
DX: N39.0 Urinary tract infection, site not specified (principal); B96.20 Unspecified Escherichia coli [E. coli] as the cause of diseases classified elsewhere

== ENCOUNTER 2023-10-30 09:55 | Emergency (ER) | payer OTHER ==
[~2023-10-30] VITALS: Ht 157.5 cm; Wt 100.0 kg
[2023-10-30 10:41] LABS: BASO # 0.1 10^3/uL (0.0-0.2); BASO % 0.7 % (0.0-1.0); EOS # 0.1 10^3/uL (0.0-0.5); EOS % 1.9 % (0.0-3.0); HEMATOCRIT 37.3 % (36.0-47.0); LYMPH # 2.1 10^3/uL (1.5-5.0); LYMPH % 30.4 % (24.0-44.0); MEAN CORPUSCULAR HEMOGLOBIN 28.5 pg (27.0-33.0); MEAN CORPUSCULAR HGB CONC 32.2 g/dl (32.0-36.5); MEAN CORPUSCULAR VOLUME 88.6 fl (80.0-96.0); MONO # 0.5 10^3/uL (0.0-0.8); MONO % 6.7 % (2.0-8.0); NEUTROPHILS # 4.2 10^3/uL (1.5-8.5); NEUTROPHILS % 60.2 % (36.0-66.0); PLATELET COUNT, AUTOMATED 234 10^3/uL (150-450); RED BLOOD COUNT 4.21 10^6/uL (4.00-5.40); WHITE BLOOD COUNT 6.9 10^3/uL (4.0-10.0)
[2023-10-30] MEDS ORDERED: ISOVUE-370 76% 100ML VIAL As Ordered ONE (10:52)
[2023-10-30 12:39] VITALS: BP 129/62; TEMP 96.9; O2SAT 99
== END 2023-10-30 12:41 | disposition home or self-care (01) ==
LOC: M ED 09:55 → EDBD 09:55 → M ED 12:41
DX: S90.111A Contusion of right great toe without damage to nail, initial encounter (principal); S80.12XA Contusion of left lower leg, initial encounter; R91.1 Solitary pulmonary nodule; V47.6XXA Car passenger injured in collision with fixed or stationary object in traffic accident, initial encounter; E11.9 Type 2 diabetes mellitus without complications; I10 Essential (primary) hypertension; K21.9 Gastro-esophageal reflux disease without esophagitis; E78.5 Hyperlipidemia, unspecified; Z79.811 Long term (current) use of aromatase inhibitors; Z79.4 Long term (current) use of insulin; Z79.899 Other long term (current) drug therapy; Y99.0 Civilian activity done for income or pay; Y92.410 Unspecified street and highway as the place of occurrence of the external cause; Y93.89 Activity, other specified; M17.12 Unilateral primary osteoarthritis, left knee
CPT/HCPCS: 36415; 70450; 71260; 72125; 73564; 73590; 73630; 74177; 80047; 85025; 99284; Q9967

== ENCOUNTER → 2023-12-02 | Outpatient (CLI) | payer OTHER | LOC: M PLARAD 12:50 | PROVIDERS: ATTEND Family Medicine | DX: R91.1 Solitary pulmonary nodule (principal) | CPT/HCPCS: 78815; A9552 ==

== ENCOUNTER → 2023-12-17 | Outpatient (REF) | payer OTHER ==
[~2023-12-17] MED LIST changes: +IBUP-1022 PO; +SEMA1PEN2 SQ
[2023-12-17 18:04] LABS: APPEARANCE, URINE CLOUDY (CLEAR); BACTERIA, URINE AUTO 1+ (NEGATIVE); BILIRUBIN, URINE AUTO NEGATIVE (NEGATIVE); BLOOD, URINE BLOOD NEGATIVE (NEGATIVE); COLOR, URINE YELLOW (YELLOW); GLUCOSE, URINE (UA) AUTO NEGATIVE (NEGATIVE); KETONE, URINE AUTO NEGATIVE (NEGATIVE); LEUKOCYTE ESTERASE, URINE AUTO 3+ (NEGATIVE); MUCUS, URINE SMALL (NEGATIVE); NITRITE, URINE AUTO NEGATIVE (NEGATIVE); PROTEIN, URINE AUTO 1+ mg/dL (NEGATIVE); RBC, URINE AUTO 5 /HPF (0-3); SPECIFIC GRAVITY URINE AUTO 1.018 (1.002-1.035); SQUAMOUS EPITHELIAL CELL UR AU 2 /HPF (0-6); WBC, URINE AUTO TNTC /HPF (0-3)
== END ==
LOC: M SMT 16:54
PROVIDERS: ATTEND Urology
DX: N39.0 Urinary tract infection, site not specified (principal)

== ENCOUNTER 2023-12-31 06:26 | Day surgery (SDC) | payer OTHER ==
[~2023-12-31] VITALS: Ht 157.5 cm; Wt 93.9 kg
[2023-12-31] MEDS ORDERED: LR 1,000 ML IV SCH (06:50)
[2023-12-31] MEDS ORDERED: SUGAMMADEX SODIUM 500 MG/5 ML VIAL (BRIDION) As Ordered ONE (06:58)
[2023-12-31] MEDS ORDERED: LIDOCAINE 2% 100MG/5ML SDV (FOR ANES.) As Ordered ONE (06:58)
[2023-12-31] MEDS ORDERED: ROCURONIUM BROMIDE 50MG/5ML VIAL As Ordered ONE (06:58)
[2023-12-31] MEDS ORDERED: propofoL 200 MG/20 ML VIAL As Ordered ONE (06:58)
[2023-12-31] MEDS ORDERED: ONDANSETRON 4MG 2ML VIAL As Ordered ONE (06:58)
[2023-12-31] MEDS ORDERED: GLYCOPYRROLATE INJ 0.2 MG/ML 2 ML VIAL As Ordered ONE (06:58)
[2023-12-31] MEDS ORDERED: MIDAZOLAM INJ 2MG/2ML VIAL As Ordered ONE (06:59)
[2023-12-31] MEDS ORDERED: fentaNYL 100 MCG/2 ML INJECTION As Ordered ONE (06:59)
[2023-12-31] MEDS: THROMBIN 5,000 UNITS VIAL As Ordered ONE (07:17)
[2023-12-31] MEDS: EPINEPHrine 1MG/10ML SYRINGE 1.5IN As Ordered ONE (07:18)
[2023-12-31] MEDS: CETACAINE SPRAY 5GM As Ordered ONE (07:45)
[2023-12-31] MEDS ORDERED: PHENYLephrine 500MCG 5ML (100MCG/ML) SYRINGE As Ordered ONE (08:01)
[2023-12-31] MEDS ORDERED: ATROPINE SULF 0.4 MG/ML 1ML VIAL As Ordered ONE (08:04)
[2023-12-31] MEDS ORDERED: ONDANSETRON 4MG 2ML VIAL IV PRN (08:25)
[2023-12-31] MEDS ORDERED: fentaNYL 100 MCG/2 ML INJECTION IV PRN (08:25)
[2023-12-31] MEDS ORDERED: MORPHINE 2 MG/ML 1ML VIAL IV PRN (08:25)
[2023-12-31] MEDS ORDERED: oxyCODONE 5MG TAB PO PRN (08:25)
[2023-12-31 09:13] VITALS: BP 126/75; TEMP 97; O2SAT 95
== END 2023-12-31 09:40 | disposition home or self-care (01) ==
LOC: M SDC 06:26
PROVIDERS: ATTEND Internal Medicine Pulmonary Disease
DX: R59.0 Localized enlarged lymph nodes (principal); R91.1 Solitary pulmonary nodule; I10 Essential (primary) hypertension; E11.9 Type 2 diabetes mellitus without complications; K21.9 Gastro-esophageal reflux disease without esophagitis; Z87.891 Personal history of nicotine dependence; F41.9 Anxiety disorder, unspecified; Z79.899 Other long term (current) drug therapy; Z79.84 Long term (current) use of oral hypoglycemic drugs; R32 Unspecified urinary incontinence
CPT/HCPCS: 31629; 31654; 71045; 88173; 88305; J0171; J0461; J1100; J1596; J2250; J2371; J2405; J3010

== ENCOUNTER → 2024-02-26 | Outpatient (CLI) | payer OTHER ==
[~2024-02-26] MED LIST changes: +GABA-1172 PO; -GABA-282 PO
== END ==
LOC: M PLARAD 14:20
PROVIDERS: ATTEND Physician Assistant Surgical
DX: M43.16 Spondylolisthesis, lumbar region (principal)

== ENCOUNTER → 2024-03-16 | Outpatient (REF) | payer OTHER ==
[2024-03-17 15:06] LABS: APPEARANCE, URINE CLOUDY (CLEAR); BACTERIA, URINE AUTO NEGATIVE (NEGATIVE); BILIRUBIN, URINE AUTO NEGATIVE (NEGATIVE); BLOOD, URINE BLOOD NEGATIVE (NEGATIVE); CALCIUM OXALATE CRYSTALS LARGE; COLOR, URINE AMBER (YELLOW); GLUCOSE, URINE (UA) AUTO NEGATIVE (NEGATIVE); KETONE, URINE AUTO NEGATIVE (NEGATIVE); LEUKOCYTE ESTERASE, URINE AUTO 3+ (NEGATIVE); MUCUS, URINE SMALL (NEGATIVE); NITRITE, URINE AUTO NEGATIVE (NEGATIVE); PROTEIN, URINE AUTO 1+ mg/dL (NEGATIVE); RBC, URINE AUTO 5 /HPF (0-3); SPECIFIC GRAVITY URINE AUTO 1.016 (1.002-1.035); SQUAMOUS EPITHELIAL CELL UR AU 0 /HPF (0-6); WBC, URINE AUTO TNTC /HPF (0-3)
== END ==
LOC: M SMT 13:14
PROVIDERS: ATTEND Nurse Practitioner Family
DX: N39.0 Urinary tract infection, site not specified (principal)

== ENCOUNTER → 2024-04-07 | Outpatient (CLI) | payer OTHER ==
[2024-04-07 13:02] LABS: BLOOD UREA NITROGEN 11 MG/DL (9-23); CREATININE FOR GFR 0.68 MG/DL (0.55-1.30); GLOMERULAR FILTRATION RATE > 60.0 (>51)
[2024-04-10 17:57] LABS: CRYTPOCOCCUS SOURCE Serum
== END ==
LOC: M LAB 11:18
PROVIDERS: ATTEND Internal Medicine Pulmonary Disease
DX: R91.8 Other nonspecific abnormal finding of lung field (principal)

== ENCOUNTER → 2024-04-08 | Outpatient (REF) | payer OTHER ==
[2024-04-08 17:39] LABS: AMORPHOUS SEDIMENT SMALL (NEGATIVE); APPEARANCE, URINE CLOUDY (CLEAR); BACTERIA, URINE AUTO 2+ (NEGATIVE); BILIRUBIN, URINE AUTO NEGATIVE (NEGATIVE); BLOOD, URINE BLOOD NEGATIVE (NEGATIVE); CALCIUM OXALATE CRYSTALS LARGE; COLOR, URINE YELLOW (YELLOW); GLUCOSE, URINE (UA) AUTO NEGATIVE (NEGATIVE); KETONE, URINE AUTO NEGATIVE (NEGATIVE); LEUKOCYTE ESTERASE, URINE AUTO 2+ (NEGATIVE); MUCUS, URINE SMALL (NEGATIVE); NITRITE, URINE AUTO POSITIVE (NEGATIVE); PROTEIN, URINE AUTO NEGATIVE (NEGATIVE); RBC, URINE AUTO 4 /HPF (0-3); SPECIFIC GRAVITY URINE AUTO 1.018 (1.002-1.035); SQUAMOUS EPITHELIAL CELL UR AU 1 /HPF (0-6); UROBILINOGEN, URINE AUTO 0.2 mg/dL (0.0-2.0); WBC, URINE AUTO 93 /HPF (0-3)
== END ==
LOC: M LAB REF 17:06
PROVIDERS: ATTEND Nurse Practitioner Family
DX: R30.0 Dysuria (principal)

== ENCOUNTER → 2024-04-13 | Outpatient (CLI) | payer OTHER ==
[~2024-04-13] MED LIST changes: +ISOVUE-370 76% 100ML VIAL ONE
== END ==
LOC: M PLAIMG 08:46
PROVIDERS: ATTEND Internal Medicine Pulmonary Disease
DX: R91.8 Other nonspecific abnormal finding of lung field (principal)

== ENCOUNTER → 2024-05-28 | Outpatient (REF) | payer OTHER ==
[~2024-05-28] MED LIST changes: -ISOVUE-370 76% 100ML VIAL ONE
[2024-05-28 17:52] LABS: APPEARANCE, URINE HAZY (CLEAR); BACTERIA, URINE AUTO 1+ (NEGATIVE); BILIRUBIN, URINE AUTO NEGATIVE (NEGATIVE); BLOOD, URINE BLOOD NEGATIVE (NEGATIVE); COLOR, URINE AMBER (YELLOW); GLUCOSE, URINE (UA) AUTO NEGATIVE (NEGATIVE); KETONE, URINE AUTO NEGATIVE (NEGATIVE); LEUKOCYTE ESTERASE, URINE AUTO 2+ (NEGATIVE); MUCUS, URINE SMALL (NEGATIVE); NITRITE, URINE AUTO NEGATIVE (NEGATIVE); PROTEIN, URINE AUTO NEGATIVE (NEGATIVE); RBC, URINE AUTO 1 /HPF (0-3); SPECIFIC GRAVITY URINE AUTO 1.024 (1.002-1.035); SQUAMOUS EPITHELIAL CELL UR AU 1 /HPF (0-6); WBC, URINE AUTO 41 /HPF (0-3)
== END ==
LOC: M SMT 17:08
PROVIDERS: ATTEND Nurse Practitioner Family
DX: R39.9 Unspecified symptoms and signs involving the genitourinary system (principal)

== ENCOUNTER → 2024-08-12 | Outpatient (REF) | payer OTHER ==
[2024-08-12 17:36] LABS: APPEARANCE, URINE HAZY (CLEAR); BACTERIA, URINE AUTO 1+ (NEGATIVE); BILIRUBIN, URINE AUTO NEGATIVE (NEGATIVE); BLOOD, URINE BLOOD NEGATIVE (NEGATIVE); COLOR, URINE YELLOW (YELLOW); GLUCOSE, URINE (UA) AUTO NEGATIVE (NEGATIVE); KETONE, URINE AUTO NEGATIVE (NEGATIVE); LEUKOCYTE ESTERASE, URINE AUTO 3+ (NEGATIVE); NITRITE, URINE AUTO POSITIVE (NEGATIVE); PROTEIN, URINE AUTO NEGATIVE (NEGATIVE); RBC, URINE AUTO 2 /HPF (0-3); SPECIFIC GRAVITY URINE AUTO 1.009 (1.002-1.035); SQUAMOUS EPITHELIAL CELL UR AU 0 /HPF (0-6); UROBILINOGEN, URINE AUTO 0.2 mg/dL (0.0-2.0); WBC, URINE AUTO 35 /HPF (0-3)
== END ==
LOC: M SMT 16:52
PROVIDERS: ATTEND Nurse Practitioner Family
DX: R39.15 Urgency of urination (principal)

== ENCOUNTER → 2024-09-07 | Outpatient (REF) | payer OTHER ==
[2024-09-07 17:25] LABS: APPEARANCE, URINE HAZY (CLEAR); BACTERIA, URINE AUTO NEGATIVE (NEGATIVE); BILIRUBIN, URINE AUTO NEGATIVE (NEGATIVE); BLOOD, URINE BLOOD NEGATIVE (NEGATIVE); CALCIUM OXALATE CRYSTALS MODERATE; COLOR, URINE YELLOW (YELLOW); GLUCOSE, URINE (UA) AUTO NEGATIVE (NEGATIVE); KETONE, URINE AUTO NEGATIVE (NEGATIVE); LEUKOCYTE ESTERASE, URINE AUTO NEGATIVE (NEGATIVE); MUCUS, URINE SMALL (NEGATIVE); NITRITE, URINE AUTO NEGATIVE (NEGATIVE); PROTEIN, URINE AUTO 1+ mg/dL (NEGATIVE); RBC, URINE AUTO 1 /HPF (0-3); SPECIFIC GRAVITY URINE AUTO 1.026 (1.002-1.035); SQUAMOUS EPITHELIAL CELL UR AU 1 /HPF (0-6); UROBILINOGEN, URINE AUTO 0.2 mg/dL (0.0-2.0); WBC, URINE AUTO 4 /HPF (0-3)
== END ==
LOC: M SMT 15:17
PROVIDERS: ATTEND Physician Assistant
DX: N39.0 Urinary tract infection, site not specified (principal)

== ENCOUNTER → 2024-11-16 | Outpatient (REF) | payer OTHER | LOC: M LAB REF 16:25 | PROVIDERS: ATTEND Surgery | DX: D48.5 Neoplasm of uncertain behavior of skin (principal); L98.8 Other specified disorders of the skin and subcutaneous tissue ==